=== PATIENT | female | born 2000 | race Caucasian/White ===

== ENCOUNTER → 2023-02-21 | Outpatient (CLI) | payer OTHER, SELFPAY ==
[2023-02-21 11:42] LABS: Amphetamine Urine VISTA NEGATIVE (<1000 ng/mL); Barbiturate Urine VISTA NEGATIVE (< 200 ng/mL); Benzodiazepine Urine VISTA NEGATIVE (< 200 ng/mL); Cocaine Urine VISTA NEGATIVE (< 300 ng/mL); Ecstacy Urine VISTA NEGATIVE (< 500 ng/mL); Methadone Urine VISTA NEGATIVE (< 300 ng/mL); PCP Urine VISTA NEGATIVE (< 25 ng/mL); THC Urine VISTA POSITIVE (< 50 ng/mL); Vista UDS pH Range 7
[2023-02-22 21:07] LABS: Chlamydia By Nucleic Acid AMP Negative (Negative); Gonococcus By Nucleic Acid AMP Negative (Negative)
[2023-02-26 13:26] LABS: HPV Reflexed? NOT INDICATED
== END | disposition home or self-care (01) ==
PROVIDERS: Referring Provider Registered Nurse; Visit Provider Registered Nurse
DX: O99.320 Drug use complicating pregnancy, unspecified trimester (principal); F12.90 Cannabis use, unspecified, uncomplicated; Z3A.00 Weeks of gestation of pregnancy not specified
CPT/HCPCS: 80307; 87086; 87088; 87491; 87591; 88175; G0145

== ENCOUNTER → 2023-03-23 | Outpatient (CLI) | payer OTHER, SELFPAY ==
[2023-03-23 09:35] LABS: Absolute Lymphocyte Count 2.14 X10^3/uL (0.83-4.51); Absolute Neutrophil Count 5.3 X10^3/uL (2.0-7.7); Basophil# 0.05 X10^3/uL; Basophil% 0.6 % (0-1); Eosinophil# 0.39 X10^3/uL; Eosinophils% 4.4 % (0-5); Hematocrit 36.3 % (37-47); Hemoglobin 12.2 g/dL (12.0-15.0); Lymphocyte # 2.14 X10^3/ul (0.83-4.51); Lymphocyte % 24.4 % (19-41); Mean Corp Hgb Conc 33.6 g/dL (32-36); Mean Corpuscular Hgb 30.3 pg (27.0-32.0); Mean Corpuscular Volume 90.1 fL (81-99); Mean Platelet Vol. 11.9 fl (6.2-12.0); Monocyte# 0.81 X10^3/uL; Monocyte% 9.2 % (0-10); NRBC Flagged by Analyzer 0 % (0-5); Neutrophil # 5.34 X10^3/uL (2.7-7.7); Neutrophil % 60.9 % (47-70); Platelet Count 251 K/mm3 (150-450); RBC Distribution Width CV 12.2 % (11.6-14.6); RBC Distribution Width SD 39.8 fl (35.1-43.9); Red Blood Count 4.03 M/mm3 (4.2-5.4); White Blood Count 8.8 K/mm3 (4.4-11.0)
[2023-03-23 10:28] LABS: NATERA MAILED SPECIMEN
[2023-03-23 11:10] LABS: HIV - WCH Non-Reactive (Nonreactive); Hepatitis B Surface Antigen Non-Reactive (Nonreactive); Hepatitis C Antibody Non-Reactive (Nonreactive); Rubella IgG Reactive (Nonreactive); Syphilis Antibodies Non-reactive
== END | disposition home or self-care (01) ==
LOC: PAVLAB 09:14
PROVIDERS: Registered Nurse; Referring Provider Obstetrics & Gynecology; Visit Provider Obstetrics & Gynecology
DX: Z34.81 Encounter for supervision of other normal pregnancy, first trimester (principal)
CPT/HCPCS: 36415; 85025; 86703; 86762; 86780; 86803; 86850; 86900; 86901; 87340

== ENCOUNTER → 2023-05-18 | Outpatient (CLI) | payer OTHER, SELFPAY ==
--- OUTSIDE RECORDS SUMMARY | 2023-05-18 16:49 | XMS RPT_ITS | CCD ---
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 Name Role Phone AYDEE WALLACE Unavailable Unavailable AYDEE WALLACE Unavailable Unavailable TONJA GUADALUPE Unavailable Unavailable Yael MASON Unavailable Unavailable MARTI SALDANA Unavailable Unavailable TONJA GUADALUPE Unavailable Unavailable German Ibarra Unavailable Unavailabl e German Ibarra Unavailable Unavailabl e No Doctor Assigned, Nodr Unavailable Unavail able Tonja Guadalupe Primary Care Provider TONJA GUADALUPE Primary Care Unavailable HANNA FAJARDO Attending Unavaila TONJA Hong Primary Care Unavailable BEATRICE NEGRON Attending Unavailable BEATRICE NEGRON Admitting Unavailable SHAYNA WANG Attending Unavailable SANJUANITA TAYLOR Primary Care Unavailable RAHEL YANG Attending Unavailable ADRIANA GUTIERRES Referring Unavailabl e Medications Current Medications Medication Drug Class(es) Dates Sig (Normalized) Sig (Original) cefdinir 300 mg oral capsule (2 sources) Cephalosporin Antibacterial Start: 10-11-2019 End: 10-21-2019 take 1 capsule by mouth twice daily cefdinir (OMNICEF) 300 MG capsule Take 1 (one) capsule (300 mg total) by mouth 2 (two) times a day for 10 days . 20 capsule 0 10/11/2019 10/21/2019 Active ethinyl estradiol 0.035 mg / norethindrone 1 mg oral tablet (2 sources) Estrogen take 1 tablet by mouth once daily norethindrone-e thinyl estradiol (ORTHO-NOVUM 1-35 TAB,NORTREL 1-35 TAB) 1-35 mg-mcg per tablet Take 1 tablet by mouth daily . 0 Active sertraline 50 mg oral tablet (2 sources) Serotonin Reuptake Inhibitor take 1 tablet by mouth once daily sertraline (ZOLOFT) 50 MG tablet Take 50 mg by mouth daily . 0 Active sulfamethoxazole 800 mg / trimethoprim 160 mg oral tablet (1 source) Dihydrofolate Reductase Inhibitor Antibacterial, Sulfonamide Antimicrobial Start: 10-12-2019 End: 10-22-2019 take 1 tablet by mouth twice daily sulfamethoxazol e-trimethoprim (BACTRIM DS,SEPTRA DS) 800-160 mg per tablet Take 1 (one) tablet by mouth 2 (two) times a day for 10 days . 20 tablet 0 10/12/2019 10/22/2019 Active Completed/Discontinued Medications Medication Drug Class(es) Dates Sig (Normalized) Sig (Original) cefTRIAXone 1000 mg injection (1 source) Cephalosporin Antibacterial Start: 10-12-2019 End: 10-12-2019 cefTRIAXone (ROCEPHIN) IVPB 1 g (premix) 1 ml ketorolac tromethamine 30 mg/ml injection (1 source) Nonsteroidal Anti-inflammatory Drug, Cyclooxygenase Inhibitor Start: 10-12-2019 End: 10-12-2019 ketorolac (TORADOL) injection 15 mg 2 ml ondansetron 2 mg/ml injection (3 sources) Serotonin-3 Receptor Antagonist Start: 10-12-2019 End: 10-12-2019 ondansetron (ZOFRAN) injection 4 mg Problems Active Problems Problem Classification Problem Date Documented Da te Episodic/Chronic External Injury - Place of occurrence (1 source) Other place in unspecified non-institutional (private) residence as the place of occurrence of the external cause; Translations: [OTH PLAC UNS NON INST RES OCCUR EXT] Onset: 03-21-2017 Genitourinary symptoms and ill-defined conditions (3 sources) Dysuria; Translations: [Blood in urine] Episodic Residual codes; unclassified (2 sources) Less than 8 weeks gestation of ; Translations: [Less than 8 weeks gestation of ] Onset: 02-10-2023 Episodic Unclassified (1 source) Overexertion from prolonged static or awkward postures, initial encounter; Translations: [OVEREXERT PROLNG STAT/AWK PST INIT] Onset: 03-21-2017 Urinary tract infections (1 source) Acute urinary tract infection; Translations: [Acute UTI] Episodic Past or Other Problems Problem Classification Problem Date Documented Da te Episodic/Chronic Other injuries and conditions due to external causes (2 sources) Unspecified injury of left ankle, initial encounter; Translations: [UNSPECIFIED INJURY LT ANKLE INITIAL] Onset: 03-17-2017 Episodic Sprains and strains (1 source) Sprain of unspecified ligament of left ankle, initial encounter; Translations: [SPRAIN UNS LIGAMENT LT ANKLE INIT] Onset: 03-21-2017 Episodic Results Test Name Value Interpretation Reference Range [facility] it Vital Signs Date Time Vital Sign Value Performing Clinician Faci [facility] 10-12-2019 14:09-0400 Body Temperature 98.29 [degF] [facility] 10-12-2019 14:09-0400 BP Diastolic 95 mm[Hg] [facility] 10-12-2019 14:09-0400 BP Systolic 135 mm[Hg] [facility] 10-12-2019 14:09-0400 Pulse (Heart Rate) 85 /min [facility] 10-12-2019 14:09-0400 Pulse Oximetry 98 % [facility] 10-12-2019 14:09-0400 Respiratory Rate 16 /min [facility] 10-11-2019 17:45-0400 BMI (Body Mass Index) 20.68 kg/m2 [facility] 10-11-2019 17:45-0400 Body Temperature 98.6 [degF] [facility] 10-11-2019 17:45-0400 Body weight 61.69 kg [facility] 10-11-2019 17:45-0400 BP Diastolic 79 mm[Hg] [facility] 10-11-2019 17:45-0400 BP Systolic 111 mm[Hg] [facility] 10-11-2019 17:45-0400 Height 172.7 cm [facility] 10-11-2019 17:45-0400 Pulse (Heart Rate) 72 /min [facility] 10-11-2019 17:45-0400 Pulse Oximetry 97 % [facility] 10-11-2019 17:45-0400 Respiratory Rate 18 /min [facility] Encounters Encounter Date Encounter Type Care Provider Facility Start: 04-30-2023 End: 04-30-2023 ambulatory SANJUANITA TAYLOR [facility] Start: 02-10-2023 End: 02-10-2023 ambulatory SHAYNA Ramos [facility] Start: 10-12-2019 End: 10-12-2019 Emergency department patient visit TONJA GUADALUPE [facility] Start: 10-12-2019 End: 10-12-2019 Emergency department patient visit Beatrice Negron Work Phone: [facility] Emergency Department Procedures Date Procedure Procedure Detail Performing Clinician Start: 10-12-2019 Ct abdomen & pelvis w/contrast material Madiha Figueredo Work Phone: Start: 10-12-2019 Urinalysis Madiha Ernandez Figueredo Work Phone: Start: 10-12-2019 Basic metabolic 2000 panel - Serum or Plasma Madiha Figueredo Work Phone: Start: 10-12-2019 Choriogonadotropin.beta subunit ( test) [Presence] in Serum or Plasma Madiha Ernandez Figueredo Work Phone: Start: 10-12-2019 Complete blood count with white cell differential, automated Madiha Ernandez Figueredo Work Phone: Start: 10-12-2019 Complete blood count with white cell differential, manual Madiha Ernandez Figueredo Work Phone: Start: 10-12-2019 Hepatic function 2000 panel - Serum or Plasma Madiha Ernandez Figueredo Work Phone: Start: 10-12-2019 Lactate [Moles/volume] in Serum or Plasma Madiha Ernandez Figueredo Work Phone: Start: 10-12-2019 Lipase [Enzymatic activity/volume] in Serum or Plasma Madiha Ernandez Figueredo Work Phone: Start: 10-11-2019 Choriogonadotropin ( test) [Presence] in Urine Hanna Fajardo Work Phone: Start: 10-11-2019 Urinalysis, automated Hanna Henry port Work Phone: Plan of Treatment Date Care Activity Detail Author Start: 12-12-2022 Tetanus vaccination Tetanus: Every 1 0yrs [facility] Start: 12-23-2019 Influenza vaccination given Se quential Influenza Vaccine (Season Ended) [facility] Start: 08-26-2003 History and physical examination, annual for health maintenance Wellness Visit [facility] Start: 2000 Screening for Chlamy lorraine trachomatis Chlamydia Screening [facility] End: 10-12-2019 Bacteria identified Aer cx Nom (Unsp spec) Urine Aerobic Culture Microbiology Routine Once for 1 Occurrences starting 10/12/2019 until 10/12/2019 [facility] Payers Date Payer Category Payer Unknown EDDA FLEMING/PREF/HMO/PPO xxxxxxxxxxxx 2019-Present xxxxxxxxxxxx [id number] 2019 Unknown [id number] 2017 Self-pay 2000 Unknown [id number] 2000 Unknown [id number] 1981 Unknown [id number] 1959 Unknown [id number] Private Health Insurance [id number] Social History Date Type Detail Facility Start: 10-11-2019 End: 10-12-2019 Tobacco smoking status NHIS Never smoker [facility] Start: 10-11-2019 End: 10-12-2019 Alcohol intake Ex-drinker (finding) [facility] Start: 10-11-2019 Tobacco Comment vapes [facility] Sex Assigned At Not on file [facility] Exposure to SARS-CoV-2 (event) Not sure [facility] Summary Purpose Family History No Family History Records FoundNo Family History Records FoundNo Family History Records FoundNo Family History Records FoundNo Family History Records FoundNo Family History Records FoundNo Family History Records Found Advance Directives No Advanced Directives Records FoundDocuments on File Type Date 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 Discontinue the Cefdinir that you were prescribed yesterday. Take Tylenol and ibuprofen for pain. Contact your primary care doctor tomorrow for a follow-up within 1 to 3 days. If symptoms worsen or persist please present back to the ER. * Attachments The following attachments cannot be sent through Care Everywhere. * UTI (Urinary Tract Infection): Female (Latvian) documented in this encounter Assessments Diagnosis Acute UTI Urinary tract infection, site not specified Diagnosis Dysuria Hematuria, unspecified type Voiding dysfunction Unspecified disorder of urethra and urinary tract Instructions * Patient Instructions* Hanna Fajardo PA-C - 10/11/2019 6:09 PM EDT April, Advised any worsening symptoms: cannot urinate, worsening current symptoms, gross hematuria, doc temp, vomiting, fatigue, weakness, abd pain or any other concerns--ER! F/u with pcp for recheck of urine in 7- 10 days as long as symptoms are improving. Omnicef x 10 days, fluids. Rest. Urine culture sent out, will call you with those results. Work note. Urine preg--neg; Udip + or abnormal. Contact your pcp on Sunday and let them know you were seen at our Urgent Care. Pt counceled on azo use and why this can be dangerous. Advised not to use this in the future. Get better girlie! Painful Urination (Dysuria): Care Instructions Your Care Instructions Burning pain with urination (dysuria) is a common symptom of a urinary tract infection or other urinary problems. The bladder may become inflamed. This can cause pain when the bladder fills and empties. You may also feel pain if the tube that carries urine from the bladder to the outside of the body (urethra) gets irritated or infected. Sexually transmitted infections (STIs) also may cause pain when you urinate. Sometimes the pain can be caused by things other than an infection. The urethra can be irritated bysoaps, perfumes, or foreign objects in the urethra. Kidney stones can cause pain when they pass through the urethra. The cause may be hard to find. You may need tests. Treatment for painful urination depends on the cause. Follow-up care is a robles part of your treatment and safety. Be sure to make and go to all appointments, and call your doctor if you are having problems. It's also a good idea to know your test resultsand keep a list of the medicines you take. How can you care for yourself at home? Drink extra water for the next day or two. This will help make the urine less concentrated. (If youhave kidney, heart, or liver disease and have to limit fluids, talk with your doctor before you increase the amount of fluids you drink.) Avoid drinks that are carbonated or have caffeine. They can irritate the bladder. Urinate often. Try to empty your bladder each time. For women: Urinate right after you have sex. After going to the bathroom, wipe from front to back. Avoid douches, bubble baths, and feminine hygiene sprays. And avoid other feminine hygiene productsthat have deodorants. When should you call for help? Call your doctor now or seek immediate medical care if: You have new symptoms, such as fever, nausea, or vomiting. You have new or worse symptoms of a urinary problem. For example: ? You have blood or pus in your urine. ? You have chills or body aches. ? It hurts worse to urinate. ? You have groin or belly pain. ? You have pain in your back just below your rib cage (the flank area). Watch closely for changes in your health, and be sure to contact your doctor if you have any problems. Where can you learn more? Log into your personal health record on [email or web address]://[email or web address] and enter H814 in the Education box to learn more about Painful Urination (Dysuria): Care Instructions. Current as of: December 11, 2018 Content Version: 12.3 [id number] [employer]. Care instructions adapted under license by your healthcare professional. If you have questions about a medical condition or this instruction, always ask your healthcare professional. [employer] disclaims any warranty or liability for your use of this information. documented in this encounter History of Present Illness * Hanna Fajardo PA-C - 10/11/2019 5:48 PM EDT Patient Name: [facility] Urgent Care Location: [facility] [address] [place] [id number] Date Of : Date Of Visit: 2000 10/14/2019 MRN# Provider: [id number] Hanna Fajardo PA-C Chief Complaint Patient presents with Urinary Frequency x3-4 days Flank Pain Assessment & Plan 1. Dysuria POC Urinalysis Dipstick,Auto UC POC , Urine Urine Aerobic Culture 2. Hematuria, unspecified type Urine Aerobic Culture 3. Voiding dysfunction Urine Aerobic Culture Return if symptoms worsen or fail to improve. Medical Decision Making Discussed flank pain, pyelo, etc. Pt prefers to be treated as out pt today; Discussed when to go toER (see discharge instructions). Pt is nontoxic, afebrile--will send urine for culture after abnormal urinalysis and wait for results. Starting pt on omnicef and one day of pyridium. ANY WORSENING SYMPTOMS--ER!! Work note provided. Pt is nontoxic, afebrile, w/o ams and verbalized good understanding and agreement. Additional Clinical Comments Discussed over the counter medications for symptomatic management and side effects of medications. Recommended taking all medications with food and to stop medications if they develop any signs of anallergic reaction. Educated patient and/or guardian about signs and symptoms that would warrant further immediate evaluation. Recommended that they should return to urgent care, make an appointment with their family physician, or go to the emergency room if symptoms persist or get acutely worse. Recommended follow upwithin the next week with their PCP or to get established with a PCP soon in order to follow up appropriately. [facility] COVID-19 Mask Status: Does the patient have classic COVID-19 symptoms? No, the patient does not have COVID-19 symptoms, the patient WAS wearing a mask during the visit and I (the provider) WAS wearing a mask during the visit. The provider was wearing gloves during visit. Subjective 19 y.o. female presents with Urinary Frequency (x3-4 days) and Flank Pain The pt presents after one wk of urinary frequency, dysuria, and now over the past 24 hours, bilat back pain. No hx of kidney stones. NO abnl vag dc or bleeding, painful intercourse. Pt has had no abdPSH, no female hx. She is sexually active, using contraception with a male partner. NO gross hematuria. Admits to chills, nausea, flank pain; works at [employer] in [place]. Will need work note. Dysuria This is a new problem. The current episode started in the past 7 days. The problem occurs every urination. The problem has been gradually worsening. The quality of the pain is described as burning. The pain is at a severity of 4/10. The pain is mild. There has been no fever. She is sexually active.There is no history of pyelonephritis. Associated symptoms include chills, flank pain, nausea and urgency. Pertinent negatives include no frequency, hematuria or vomiting. She has tried increased fluids for the symptoms. The treatment provided mild relief. There is no history of catheterization, kidney stones, recurrent UTIs, a single kidney, urinary stasis or a urological procedure. Review Of Systems Review of Systems Constitutional: Positive for activity change, appetite change and chills. Negative for diaphoresis,fatigue, fever and unexpected weight change. HENT: Negative. Eyes: Negative. Respiratory: Negative. Gastrointestinal: Positive for nausea. Negative for abdominal distention, abdominal pain, anal bleeding, blood in stool, constipation, diarrhea, rectal pain and vomiting. Genitourinary: Positive for difficulty urinating, dysuria, flank pain and urgency. Negative for decreased urine volume, dyspareunia, enuresis, frequency, genital sores, hematuria, menstrual problem, pelvic pain, vaginal bleeding, vaginal discharge and vaginal pain. Musculoskeletal: Negative for arthralgias, back pain, gait problem, joint swelling, myalgias, neck pain and neck stiffness. Skin: Negative. Neurological: Negative. Hematological: Negative. Medical History Past Medical History: Diagnosis Date Anxiety Asthma Depression There is no problem list on file for this patient. Social History Social History Socioeconomic History Marital status: Single Spouse name: Not on file Number of children: Not on file Years of education: Not on file Highest education level: Not on file Occupational History Not on file Social Needs Financial resource strain: Not on file Food insecurity Worry: Not on file Inability: Not on file Transportation needs Medical: Not on file Non-medical: Not on file Tobacco Use Smoking status: Never Smoker Smokeless tobacco: Never Used Tobacco comment: vapes Substance and Sexual Activity Alcohol use: Not Currently Drug use: Not on file Sexual activity: Not on file Lifestyle Physical activity Days per week: Not on file Minutes per session: Not on file Stress: Not on file Relationships Social connections Talks on phone: Not on file Gets together: Not on file Attends sabianism service: Not on file Active member of club or organization: Not on file Attends meetings of clubs or organizations: Not on file Relationship status: Not on file Other Topics Concern Not on file Social History Narrative Not on file Family History No family history on file. Objective Physical Exam BP 111/79 Pulse 72 Temp 98.6 F (37 C) (Infrared) Resp 18 Ht 5' 8 Wt 61.7 kg (136 lb) SpO2 97% BMI 20.68 kg/m Vision/Hearing Exam:No exam data present Physical Exam Vitals signs and nursing note reviewed. Constitutional: General: She is not in acute distress. Appearance: Normal appearance. She is normal weight. She is not ill-appearing, toxic-appearing or diaphoretic. HENT: Head: Normocephalic and atraumatic. Right Ear: External ear normal. Left Ear: External ear normal. Nose: Nose normal. Eyes: General: No scleral icterus. Right eye: No discharge. Left eye: No discharge. Extraocular Movements: Extraocular movements intact. Neck: Musculoskeletal: Normal range of motion and neck supple. No neck rigidity. Cardiovascular: Rate and Rhythm: Normal rate and regular rhythm. Pulses: Normal pulses. Heart sounds: Normal heart sounds. No murmur. No friction rub. No gallop. Pulmonary: Effort: Pulmonary effort is normal. No respiratory distress. Breath sounds: Normal breath sounds. No stridor. No wheezing, rhonchi or rales. Chest: Chest wall: No tenderness. Abdominal: General: Bowel sounds are normal. There is no distension. Palpations: Abdomen is soft. Tenderness: There is abdominal tenderness. There is guarding. There is no right CVA tenderness or left CVA tenderness. Comments: Pt c/o bilat flank ttp but no elicited on exam. No flank ecchymosis. No post midline spinal ttp throughout. No evidence of incontinence. + suprapubic ttp on exam only. No HSM. Musculoskeletal: Normal range of motion. General: No swelling, tenderness, deformity or signs of injury. Right lower leg: No edema. Left lower leg: No edema. Skin: General: Skin is warm and dry. Capillary Refill: Capillary refill takes 2 to 3 seconds. Coloration: Skin is not jaundiced or pale. Findings: No bruising, erythema, lesion or rash. Neurological: General: No focal deficit present. Mental Status: She is alert and oriented to person, place, and time. Mental status is at baseline. Cranial Nerves: No cranial nerve deficit. Sensory: No sensory deficit. Motor: No weakness. Gait: Gait normal. Deep Tendon Reflexes: Reflexes normal. Psychiatric: Mood and Affect: Mood normal. Behavior: Behavior normal. Thought Content: Thought content normal. Judgment: Judgment normal. Procedure Notes Procedures Results Recent Results (from the past 168 hour(s)) POC Urinalysis Dipstick,Auto UC Collection Time: 10/11/19 5:53 PM Result Value Ref Range POC Color, Urine Vidhi (A) Yellow, Light Yellow, Dark Yellow Clarity, UA Cloudy (A) Clear Glucose, UA Negative Normal, Negative mg/dL Bilirubin, UA Negative Negative Ketones, UA Moderate (A) Negative mg/dL Spec Grav, UA 1.020 1.005 - 1.025 Blood, UA Moderate (A) Negative pH, UA 7.0 5.0 - 7.0 Protein, UA 300 (A) Negative mg/dL Urobilinogen, UA <2.0 <2.0, 0.2, Normal, Negative, 1.0, 2.0, <1.0 mg/dL Nitrite, UA Negative Negative Leukocyte Esterase, UA Moderate (A) Negative POC , Urine Collection Time: 10/11/19 5:59 PM Result Value Ref Range POC Preg Test, Ur Negative Negative Internal Control Pass Urine Aerobic Culture Collection Time: 10/11/19 6:12 PM Result Value Ref Range Culture (A) 50,000-100,000 CFU/mL Staphylococcus coagulase negative Culture (A) 50,000-100,000 CFU/mL Staphylococcus coagulase negative BMP Collection Time: 10/12/19 2:28 PM Result Value Ref Range Sodium 140 135 - 145 mmol/L Potassium 3.1 (L) 3.5 - 5.1 mmol/L Chloride 107 98 - 108 mmol/L Bicarbonate 25 21 - 32 mmol/L Anion Gap 11 10 - 20 mmol/L Glucose 85 65 - 99 mg/dL BUN 7 (L) 8 - 25 mg/dL Creatinine 0.87 0.40 - 1.10 mg/dL eGFR 97 >=60 mL/min/1.73 m2 BUN/Creatinine Ratio 8.0 (L) 10.0 - 20.0 Calcium 8.5 8.4 - 10.2 mg/dL HCG (QUALITATIVE) Collection Time: 10/12/19 2:28 PM Result Value Ref Range Beta-hCG Qual Negative Negative Lipase Collection Time: 10/12/19 2:28 PM Result Value Ref Range Lipase 106 73 - 393 U/L Lactic Acid, Plasma Collection Time: 10/12/19 2:28 PM Result Value Ref Range Lactic Acid 2.5 (H) 0.6 - 2.0 mmol/L Hepatic Function Panel (LFT) Collection Time: 10/12/19 2:28 PM Result Value Ref Range Total Protein 7.4 6.0 - 8.0 g/dL Albumin 3.5 3.2 - 5.2 g/dL Total Bilirubin 0.4 0.0 - 1.3 mg/dL Bilirubin, Direct <0.1 0.0 - 0.4 mg/dL Alkaline Phosphatase 52 40 - 140 U/L AST 18 0 - 45 U/L ALT 30 14 - 65 U/L CBC Auto Differential Collection Time: 10/12/19 2:28 PM Result Value Ref Range WBC 6.93 4.50 - 11.00 K/mcL RBC 4.54 4.00 - 5.20 M/mcL Hemoglobin 12.9 12.0 - 16.0 g/dL Hematocrit 40.2 36.0 - 46.0 % MCV 88.5 80.0 - 100.0 fL MCH 28.4 26.0 - 34.0 pg MCHC 32.1 31.0 - 37.0 g/dL Platelets 310 150 - 400 K/mcL RDW - CV 13.3 11.6 - 14.8 % MPV 12.1 9.4 - 12.4 fL Neutrophils 58.4 % Lymphocytes 23.8 % Monocytes 14.1 % Eosinophils 2.9 % Basophils 0.4 % IG Percent 0.40 % Neutrophils Abs 4.04 1.70 - 7.00 K/mcL Lymphocytes Abs 1.65 0.90 - 4.00 K/mcL Monocytes Abs 0.98 (H) 0.30 - 0.90 K/mcL Eosinophils Abs 0.20 0.00 - 0.50 K/mcL Basophils Abs 0.03 0.00 - 0.30 K/mcL IG Absolute 0.03 0.00 - 0.30 K/mcL Nucleated RBC 0.0 % Nucleated RBC Abs 0.00 0.00 - 0.00 K/mcL Urinalysis Collection Time: 10/12/19 2:38 PM Result Value Ref Range Color, Urine Vidhi (A) Colorless, Yellow Clarity, Urine Hazy (A) Clear Specific [place] 1.010 1.005 - 1.025 pH, Urine 7.0 5.0 - 7.0 Protein, Urine 30 (A) Negative mg/dL Glucose, Urine Negative Negative mg/dL Ketones, Urine Negative Negative mg/dL Bilirubin, Urine Negative Negative Urobilinogen, Urine >=4.0 (A) <2.0 mg/dL Blood, Urine Negative Negative Nitrite, Urine Positive (A) Negative Leukocyte Esterase, Urine Moderate (A) Negative WBCs, Urine 82 (H) 0 - 5 /hpf Bacteria, Urine Rare (A) None Seen /hpf WBC Clumps, Urine Rare (A) None Seen /hpf Squamous Epithelial <1 0 - 4 /hpf Mucus, Urine Rare None Seen, Rare /lpf Urine Aerobic Culture Collection Time: 10/12/19 2:38 PM Result Value Ref Range Culture (A) 10,000-49,000 CFU/mL Staphylococcus coagulase negative Culture (A) 10,000-49,000 CFU/mL Staphylococcus coagulase negative Blood Culture Aerobic/Anaerobic Collection Time: 10/12/19 3:30 PM Result Value Ref Range Culture No Growth After 48 Hours Blood Culture Aerobic/Anaerobic Collection Time: 10/12/19 3:30 PM Result Value Ref Range Culture No Growth After 48 Hours No orders to display Orders Placed This Visit Orders Placed This Encounter Procedures Urine Aerobic Culture POC Urinalysis Dipstick,Auto UC POC , Urine Medication List At End Of Visit Current Outpatient Medications Medication Sig Dispense Refill norethindrone-ethinyl estradiol (ORTHO-NOVUM 1-35 TAB,NORTREL 1-35 TAB) 1-35 mg- mcg per tablet Take1 tablet by mouth daily . sertraline (ZOLOFT) 50 MG tablet Take 50 mg by mouth daily . cefdinir (OMNICEF) 300 MG capsule Take 1 (one) capsule (300 mg total) by mouth 2 (two) times a day for 10 days . 20 capsule 0 ondansetron (Zofran ODT) 4 MG disintegrating tablet Dissolve 1 (one) tablet (4 mg total) on top of tongue every 8 (eight) hours as needed for nausea . 3 tablet 0 sulfamethoxazole-trimethoprim (BACTRIM DS,SEPTRA DS) 800-160 mg per tablet Take 1 (one) tablet by mouth 2 (two) times a day for 10 days . 20 tablet 0 No current facility-administered medications for this visit. Patient Instructions April, Advised any worsening symptoms: cannot urinate, worsening current symptoms, gross hematuria, doc temp, vomiting, fatigue, weakness, abd pain or any other concerns--ER! F/u with pcp for recheck of urine in 7- 10 days as long as symptoms are improving. Omnicef x 10 days, fluids. Rest. Urine culture sent out, will call you with those results. Work note. Urine preg--neg; Udip + or abnormal. Contact your pcp on Sunday and let them know you were seen at our Urgent Care. Pt counceled on azo use and why this can be dangerous. Advised not to use this in the future. Get better girlie! Painful Urination (Dysuria): Care Instructions Your Care Instructions Burning pain with urination (dysuria) is a common symptom of a urinary tract infection or other urinary problems. The bladder may become inflamed. This can cause pain when the bladder fills and empties. You may also feel pain if the tube that carries urine from the bladder to the outside of the body (urethra) gets irritated or infected. Sexually transmitted infections (STIs) also may cause pain when you urinate. Sometimes the pain can be caused by things other than an infection. The urethra can be irritated bysoaps, perfumes, or foreign objects in the urethra. Kidney stones can cause pain when they pass through the urethra. The cause may be hard to find. You may need tests. Treatment for painful urination depends on the cause. Follow-up care is a robles part of your treatment and safety. Be sure to make and go to all appointments, and call your doctor if you are having problems. It's also a good idea to know your test resultsand keep a list of the medicines you take. How can you care for yourself at home? Drink extra water for the next day or two. This will help make the urine less concentrated. (If youhave kidney, heart, or liver disease and have to limit fluids, talk with your doctor before you increase the amount of fluids you drink.) Avoid drinks that are carbonated or have caffeine. They can irritate the bladder. Urinate often. Try to empty your bladder each time. For women: Urinate right after you have sex. After going to the bathroom, wipe from front to back. Avoid douches, bubble baths, and feminine hygiene sprays. And avoid other feminine hygiene productsthat have deodorants. When should you call for help? Call your doctor now or seek immediate medical care if: You have new symptoms, such as fever, nausea, or vomiting. You have new or worse symptoms of a urinary problem. For example: ? You have blood or pus in your urine. ? You have chills or body aches. ? It hurts worse to urinate. ? You have groin or belly pain. ? You have pain in your back just below your rib cage (the flank area). Watch closely for changes in your health, and be sure to contact your doctor if you have any problems. Where can you learn more? Log into your personal health record on [email or web address] and enter H814 in the Education box to learn more about Painful Urination (Dysuria): Care Instructions. Current as of: December 11, 2018 Content Version: 12.3 4911-7100 [employer]. Care instructions adapted under license by your healthcare professional. If you have questions about a medical condition or this instruction, always ask your healthcare professional. [employer] disclaims any warranty or liability for your use of this information. documented in this encounter Additional Source Comments INFORMATION SOURCE (unrecogn ized section and content) DATE CREATED AUTHOR AUTHOR'S ORGANIZ ATION 11/20/2017 [facility] DATE CREATED AUTHOR AUTHOR'S ORGANIZ ATION 11/08/2019 [facility] DATE CREATED AUTHOR AUTHOR'S ORGANIZ ATION 11/08/2019 [facility] DATE CREATED AUTHOR AUTHOR'S ORGANIZ ATION 11/13/2019 [facility] DATE CREATED AUTHOR AUTHOR'S ORGANIZ ATION 02/11/2023 [facility] DATE CREATED AUTHOR AUTHOR'S ORGANIZ ATION 05/01/2023 [facility] Reason for Visit (unrecogniz ed section and content) Reason Comments Urinary Frequency x3-4 days Flank Pain Madiha Figueredo PA-C - 10/12/2019 2:21 PM EDTFYunior alanis RN - 10/12/2019 2:02 PM EDT ED Notes (unrecognized secti on and content) ED PROVIDER NOTE [facility] EMERGENCY DE[facility] NAME: April Amanda AGE: 19 y.o. : 2000 VISIT DATE: 10/12/2019 CSN: [id number] PCP: Tonja Guadalupe CNP Chief Complaint Patient presents with Urinary Tract Infection Patient presents to the emergency department for complaint of worsening urinary tract infection. Patient states her last 2 to 3 days she has been having dysuria. Explains also having bilateral flank pain. Patient was seen in urgent care yesterday where she was diagnosed with a UTI and given cefdinir, Zofran, Pyridium. Patient states that she woke up today feeling even worse. States she now has pain in her abdomen. Points to entire lower abdomen to sure the pain is at. States that she feels very nauseous. Has not had any vomiting. States that she has chills without fever. Denies chance of . Denies vaginal discharge or chance of STD. Denies all other symptoms and complaints at this time. Past Medical History: Diagnosis Date Anxiety Asthma Depression Past Surgical History: Procedure Laterality Date ADENOIDECTOMY ADENOIDECTOMY AND BILATERAL EAR TUBES TONSILLECTOMY History reviewed. No pertinent family history. Social History Socioeconomic History Marital status: Single Spouse name: Not on file Number of children: Not on file Years of education: Not on file Highest education level: Not on file Occupational History Not on file Social Needs Financial resource strain: Not on file Food insecurity Worry: Not on file Inability: Not on file Transportation needs Medical: Not on file Non-medical: Not on file Tobacco Use Smoking status: Never Smoker Smokeless tobacco: Never Used Tobacco comment: vapes Substance and Sexual Activity Alcohol use: Not Currently Drug use: Not on file Sexual activity: Not on file Lifestyle Physical activity Days per week: Not on file Minutes per session: Not on file Stress: Not on file Relationships Social connections Talks on phone: Not on file Gets together: Not on file Attends sabianism service: Not on file Active member of club or organization: Not on file Attends meetings of clubs or organizations: Not on file Relationship status: Not on file Other Topics Concern Not on file Social History Narrative Not on file Previous Medications Medication Sig cefdinir (OMNICEF) 300 MG capsule Take 1 (one) capsule (300 mg total) by mouth 2 (two) times a day for 10 days . norethindrone-ethinyl estradiol (ORTHO-NOVUM 1-35 TAB,NORTREL 1-35 TAB) 1-35 mg- mcg per tablet Take 1 tablet by mouth daily . ondansetron (Zofran ODT) 4 MG disintegrating tablet Dissolve 1 (one) tablet (4 mg total) on top of tongue every 8 (eight) hours as needed for nausea . phenazopyridine (PYRIDIUM) 100 MG tablet Take 1 (one) tablet (100 mg total) by mouth 3 (three) times a day as needed for pain . sertraline (ZOLOFT) 50 MG tablet Take 50 mg by mouth daily . No Known Allergies Review of Systems Constitutional: Negative for activity change, chills, fatigue and fever. HENT: Negative for congestion, ear pain, hearing loss, postnasal drip, rhinorrhea, sore throat and trouble swallowing. Eyes: Negative for photophobia, pain, redness and visual disturbance. Respiratory: Negative for cough, chest tightness, shortness of breath and wheezing. Cardiovascular: Negative for chest pain, palpitations and leg swelling. Gastrointestinal: Positive for abdominal pain and nausea. Negative for constipation, diarrhea and vomiting. Genitourinary: Positive for dysuria and flank pain. Negative for difficulty urinating, hematuria and urgency. Musculoskeletal: Negative for arthralgias, back pain, myalgias, neck pain and neck stiffness. Skin: Negative for color change and rash. Neurological: Negative for dizziness, speech difficulty, weakness, numbness and headaches. Psychiatric/Behavioral: Negative for agitation and suicidal ideas. The patient is not nervous/anxious. Patient Vitals for the past 24 hrs: BP Temp Pulse Resp SpO2 10/12/19 1409 (!) 135/95 98.3 F (36.8 C) 85 16 98 % Physical Exam Vitals signs and nursing note reviewed. Constitutional: General: She is not in acute distress. Appearance: She is well-developed and normal weight. She is not toxic-appearing. HENT: Head: Normocephalic and atraumatic. Right Ear: External ear normal. Left Ear: External ear normal. Nose: Nose normal. Mouth/Throat: Mouth: Mucous membranes are moist. Eyes: Extraocular Movements: Extraocular movements intact. Conjunctiva/sclera: Conjunctivae normal. Neck: Musculoskeletal: Normal range of motion and neck supple. Cardiovascular: Rate and Rhythm: Normal rate and regular rhythm. Pulses: Normal pulses. Heart sounds: Normal heart sounds. Pulmonary: Effort: Pulmonary effort is normal. Breath sounds: Normal breath sounds. Abdominal: General: Bowel sounds are normal. There is no distension. Palpations: Abdomen is soft. Tenderness: There is abdominal tenderness. There is right CVA tenderness and left CVA tenderness. There is no guarding or rebound. Comments: Suprapubic TTP Musculoskeletal: Normal range of motion. General: No deformity. Skin: General: Skin is warm and dry. Neurological: General: No focal deficit present. Mental Status: She is alert and oriented to person, place, and time. Psychiatric: Mood and Affect: Mood normal. Behavior: Behavior normal. Laboratory & Radiographic Imaging (if done): Results for orders placed or performed during the hospital encounter of 10/12/19 BMP Result Value Ref Range Sodium 140 135 - 145 mmol/L Potassium 3.1 (L) 3.5 - 5.1 mmol/L Chloride 107 98 - 108 mmol/L Bicarbonate 25 21 - 32 mmol/L Anion Gap 11 10 - 20 mmol/L Glucose 85 65 - 99 mg/dL BUN 7 (L) 8 - 25 mg/dL Creatinine 0.87 0.40 - 1.10 mg/dL eGFR 97 >=60 mL/min/1.73 m2 BUN/Creatinine Ratio 8.0 (L) 10.0 - 20.0 Calcium 8.5 8.4 - 10.2 mg/dL HCG (QUALITATIVE) Result Value Ref Range Beta-hCG Qual Negative Negative Lipase Result Value Ref Range Lipase 106 73 - 393 U/L Lactic Acid, Plasma Result Value Ref Range Lactic Acid 2.5 (H) 0.6 - 2.0 mmol/L Urinalysis Result Value Ref Range Color, Urine Vidhi (A) Colorless, Yellow Clarity, Urine Hazy (A) Clear Specific [place] 1.010 1.005 - 1.025 pH, Urine 7.0 5.0 - 7.0 Protein, Urine 30 (A) Negative mg/dL Glucose, Urine Negative Negative mg/dL Ketones, Urine Negative Negative mg/dL Bilirubin, Urine Negative Negative Urobilinogen, Urine >=4.0 (A) <2.0 mg/dL Blood, Urine Negative Negative Nitrite, Urine Positive (A) Negative Leukocyte Esterase, Urine Moderate (A) Negative WBCs, Urine 82 (H) 0 - 5 /hpf Bacteria, Urine Rare (A) None Seen /hpf WBC Clumps, Urine Rare (A) None Seen /hpf Squamous Epithelial <1 0 - 4 /hpf Mucus, Urine Rare None Seen, Rare /lpf Hepatic Function Panel (LFT) Result Value Ref Range Total Protein 7.4 6.0 - 8.0 g/dL Albumin 3.5 3.2 - 5.2 g/dL Total Bilirubin 0.4 0.0 - 1.3 mg/dL Bilirubin, Direct <0.1 0.0 - 0.4 mg/dL Alkaline Phosphatase 52 40 - 140 U/L AST 18 0 - 45 U/L ALT 30 14 - 65 U/L CBC Auto Differential Result Value Ref Range WBC 6.93 4.50 - 11.00 K/mcL RBC 4.54 4.00 - 5.20 M/mcL Hemoglobin 12.9 12.0 - 16.0 g/dL Hematocrit 40.2 36.0 - 46.0 % MCV 88.5 80.0 - 100.0 fL MCH 28.4 26.0 - 34.0 pg MCHC 32.1 31.0 - 37.0 g/dL Platelets 310 150 - 400 K/mcL RDW - CV 13.3 11.6 - 14.8 % MPV 12.1 9.4 - 12.4 fL Neutrophils 58.4 % Lymphocytes 23.8 % Monocytes 14.1 % Eosinophils 2.9 % Basophils 0.4 % IG Percent 0.40 % Neutrophils Abs 4.04 1.70 - 7.00 K/mcL Lymphocytes Abs 1.65 0.90 - 4.00 K/mcL Monocytes Abs 0.98 (H) 0.30 - 0.90 K/mcL Eosinophils Abs 0.20 0.00 - 0.50 K/mcL Basophils Abs 0.03 0.00 - 0.30 K/mcL IG Absolute 0.03 0.00 - 0.30 K/mcL Nucleated RBC 0.0 % Nucleated RBC Abs 0.00 0.00 - 0.00 K/mcL CT Abdomen Pelvis With IV Contrast Only Non-public Result 1. Thick-walled urinary bladder, a finding that can be seen in cystitis, correlation with results of urinalysis. 2. No upper urinary tract stone, signs of inflammation or obstruction. 3. No other acute intraabdominal or pelvic pathology. Workstation ID: [id number] Procedures MDM Number of Diagnoses or Management Options Diagnosis management comments: Patient's vital stable. She does have a moderate urinary tract infection. She was put on Ceftin ear. I will change his antibiotic to Bactrim. She was given a dose of IV Rocephin and fluids here along with Toradol and Zofran. Urine culture also sent. Patient is feeling improvement with this. Told to contact her primary care doctor for follow-up. CT does not reveal any other acute abnormalities to better define patient's signs and symptoms. If symptoms worsen she will present back to the ER. Amount and/or Complexity of Data Reviewed Clinical lab tests: ordered and reviewed Tests in the radiology section of CPT : reviewed and ordered Risk of Complications, Morbidity, and/or Mortality Presenting problems: moderate Diagnostic procedures: moderate Management options: low Patient Progress Patient progress: stable The patient has been informed that they may have pre-hypertension or hypertension based on a blood pressure reading in the Emergency Department. I recommend that the patient call the primary care provider listed on their discharge instructions or a physician of their choice as soon as possible to arrange follow-up in the next 4 weeks for further evaluation of possible pre-hypertension or hypertension. . Clinical Impression: 1. Acute UTI ED Disposition ED Disposition Condition Comment Discharge Stable April Amanda discharged to home/self care in stable condition. Follow-up Information 1. Tonja Guadalupe CNP. Specialty: Nurse Practitioner [address] [place] [id number] Contact information for after-discharge care Follow-up information has not been specified. New Prescriptions sulfamethoxazole-trimethoprim (BACTRIM DS,SEPTRA DS) 800-160 mg per tablet Take 1 (one) tablet by mouth 2 (two) times a day for 10 days . Madiha Figueredo PA-C 10/12/19 1544 Patient was seen at urgent care in [place] yesterday and placed on placed for a uti. Patient states she now has abdominal pain and feels the infection is getting worse. documented in this encounter ED Attestation Note - Beatrice Negron MD - 10/12/2019 4:53 PM EDT Miscellaneous Notes (unrecog nized section and content) ED Attestation: I did not see this patient. However, I was personally available for consult in the ED for this patient, if the Advanced Practice Provider (BURTON) needed any assistance. The BURTON evaluated the patient independently for a complaint of Urinary Tract Infection, and completed their own examination, documentation, and discharge. documented in this encounter FOR RECORDS PERTAINING TO PATIENTS WHO ARE OR HAVE BEEN ENROLLED IN A CHEMICAL DEPENDENCY/SUBSTANCEABUSE PROGRAM, SOME INFORMATION MAY BE OMITTED. This clinical summary was aggregated from multiple sources. Caution should be exercised in using it in the provision of clinical care. This summary normalizes information from multiple sources, and as a consequence, information in this document may materially change the coding, format and clinical context of patient data. In addition, data may be omitted in some cases. CLINICAL DECISIONS SHOULD BE BASED ON THE PRIMARY CLINICAL RECORDS. [employer] [facility]. provides no warranty or guarantee of the accuracy or completeness of information in this document.
[2023-05-18 17:58] LABS: Amphetamine Urine VISTA NEGATIVE (<1000 ng/mL); Barbiturate Urine VISTA NEGATIVE (< 200 ng/mL); Benzodiazepine Urine VISTA NEGATIVE (< 200 ng/mL); Cocaine Urine VISTA NEGATIVE (< 300 ng/mL); Ecstacy Urine VISTA NEGATIVE (< 500 ng/mL); Methadone Urine VISTA NEGATIVE (< 300 ng/mL); PCP Urine VISTA NEGATIVE (< 25 ng/mL); THC Urine VISTA NEGATIVE (< 50 ng/mL); Vista UDS pH Range 6
== END | disposition home or self-care (01) ==
LOC: LABSPEC 16:47
PROVIDERS: Referring Provider Registered Nurse; Visit Provider Registered Nurse
DX: O99.320 Drug use complicating pregnancy, unspecified trimester (principal); F12.90 Cannabis use, unspecified, uncomplicated; Z3A.00 Weeks of gestation of pregnancy not specified
CPT/HCPCS: 80307

== ENCOUNTER → 2023-07-12 | Outpatient (CLI) | payer OTHER, SELFPAY ==
[2023-07-12 11:14] LABS: Absolute Lymphocyte Count 1.69 X10^3/uL (0.83-4.51); Absolute Neutrophil Count 5.9 X10^3/uL (2.0-7.7); Basophil# 0.02 X10^3/uL; Basophil% 0.2 % (0-1); Eosinophil# 0.16 X10^3/uL; Eosinophils% 1.9 % (0-5); Hematocrit 33.7 % (37-47); Hemoglobin 11.4 g/dL (12.0-15.0); Lymphocyte # 1.69 X10^3/ul (0.83-4.51); Lymphocyte % 19.6 % (19-41); Mean Corp Hgb Conc 33.8 g/dL (32-36); Mean Corpuscular Hgb 30.3 pg (27.0-32.0); Mean Corpuscular Volume 89.6 fL (81-99); Monocyte# 0.83 X10^3/uL; Monocyte% 9.6 % (0-10); NRBC Flagged by Analyzer 0 % (0-5); Neutrophil # 5.85 X10^3/uL (2.7-7.7); Platelet Count 220 K/mm3 (150-450); RBC Distribution Width CV 12.4 % (11.6-14.6); RBC Distribution Width SD 40.7 fl (35.1-43.9); Red Blood Count 3.76 M/mm3 (4.2-5.4); White Blood Count 8.6 K/mm3 (4.4-11.0)
[2023-07-12 11:28] LABS: Glucose Challenge Gest 1H 50g 86 mg/dL (70-140)
[2023-07-12 11:59] LABS: HIV - WCH Non-Reactive (Nonreactive); Syphilis Antibodies Non-reactive
== END | disposition home or self-care (01) ==
LOC: LAB 10:20
PROVIDERS: Obstetrics & Gynecology; Referring Provider Registered Nurse; Visit Provider Registered Nurse
DX: O09.90 Supervision of high risk pregnancy, unspecified, unspecified trimester (principal); Z3A.00 Weeks of gestation of pregnancy not specified; Z13.1 Encounter for screening for diabetes mellitus
CPT/HCPCS: 36415; 82950; 85025; 86703; 86780

== ENCOUNTER → 2023-09-07 | Outpatient (CLI) | payer OTHER, SELFPAY | END | disposition home or self-care (01) | LOC: LABSPEC 17:00 | PROVIDERS: Referring Provider Obstetrics & Gynecology; Visit Provider Obstetrics & Gynecology | DX: O09.90 Supervision of high risk pregnancy, unspecified, unspecified trimester (principal); Z3A.00 Weeks of gestation of pregnancy not specified | CPT/HCPCS: 87081 ==

== ENCOUNTER → 2023-09-21 | Outpatient (CLI) | payer OTHER, SELFPAY ==
--- NOTE | 2023-09-21 12:09 | US_ITS ---
STUDY: SECOND AND THIRD TRIMESTER OBSTETRICAL ULTRASOUND - LIMITED REASON FOR EXAM: Female, 23 years old uterine size date discrepancy LMP: December 25, 2022. PRIOR ULTRASOUND: None. TECHNIQUE: Transabdominal TECHNICAL QUALITY: Adequate. FINDINGS: There is a single intrauterine fetus. The fetus is in a cephalic presentation. There is demonstrated cardiac activity with a heart rate of 136 bpm. There is a normal amniotic fluid volume. The largest amniotic fluid pocket measures 3.9 cm x 5.4 cm. The amniotic fluid index (MERRICK) is 13.2 cm. The placenta is posterior in location and is not low lying. There are Grade 2 placental changes. The cervix was not measured due to head positioning and lack of filling of the urinary bladder. BIOMETRY: BPD: 9.19 cm: 37 weeks, 2 days HC: 33.6 cm: 38 weeks, 3 days AC: 32.6 cm: 36 weeks, 3 days FL: 7.04 cm: 36 weeks, 1 days Age by LMP: 38 weeks, 4 days. KARISHMA by LMP: October 01, 2023. age by current US: 37 weeks, 3 days. KARISHMA by current US: October 09, 2023. Estimated weight: 2997 grams, +/- 450 grams, 21.4 percentile. US/OB Limited With Biometrics IMPRESSION: Single live intrauterine gestation with mean gestational age of 37 weeks and 3 days. Electronically Signed: Arvind Wilson MD at 13:39 EDT ,
== END | disposition home or self-care (01) ==
LOC: OPUS 12:09
PROVIDERS: Referring Provider Obstetrics & Gynecology; Visit Provider Obstetrics & Gynecology
DX: O26.849 Uterine size-date discrepancy, unspecified trimester (principal); Z3A.00 Weeks of gestation of pregnancy not specified
CPT/HCPCS: 76816

== ENCOUNTER → 2023-09-27 | Outpatient (CLI) | payer OTHER, SELFPAY ==
--- NOTE | 2023-09-27 10:10 | US_ITS ---
STUDY: SECOND AND THIRD TRIMESTER OBSTETRICAL ULTRASOUND - LIMITED REASON FOR EXAM: Female, 23 years old MERRICK check, No Biometrics LMP: December 25, 2022. PRIOR ULTRASOUND: Comparison is made with prior study September 21, 2023 TECHNIQUE: Transabdominal TECHNICAL QUALITY: Adequate. FINDINGS: There is a single intrauterine fetus. The fetus is in a cephalic presentation. There is demonstrated cardiac activity with a heart rate of 145 bpm. There is a normal amniotic fluid volume. The largest amniotic fluid pocket measures 3.6 cm. The amniotic fluid index (MERRICK) is 10 cm. The placenta is posterior in location and is not low lying. There are Grade 2 placental changes. The cervix was not measured due to positioning. BIOMETRY: Age by LMP: 39 weeks, 3 days. KARISHMA by LMP: October 01, 2023. US/OB Limited (No Biometrics) IMPRESSION: Normal amniotic fluid index. Electronically Signed: Arvind Wilson MD at 12:31 EDT ,
== END | disposition home or self-care (01) ==
PROVIDERS: Referring Provider Advanced Practice Midwife; Visit Provider Advanced Practice Midwife
DX: O26.843 Uterine size-date discrepancy, third trimester (principal); Z3A.00 Weeks of gestation of pregnancy not specified
CPT/HCPCS: 76815

== ENCOUNTER 2023-09-28 17:33 | Outpatient (CLI) | payer OTHER, SELFPAY ==
[2023-09-28 18:11] VITALS: BP 117/74; PULSE 62; RESP 15; TEMP 36.8
[2023-09-28 18:23] LABS: ROM Internal Control Test YES-OK TO RESULT pt. (Internal QC); ROM Patient Test Negative (Negative); Record Kit Lot#, ROM+ K1866
[2023-09-28 18:41] VITALS: BMI 26.6
--- NOTE | 2023-09-28 23:32 | OB.TRI.HP_ITS ---
HPI - General General Chief Complaint: leaking of fluid HPI Narrative EZEKIEL RODRIGUEZ, is a 23 F at 39.4 who presents with questionable leaking of fluid since this morning. active fetus. denies vb/ctx. Maternal Data Information KARISHMA Calculator Estimated Delivery Date Method Current WG Current Estimate 10/01/23 LMP (Certain) 39w 4d Other Estimates 10/14/23 Ultrasound #1 37w 5d 10/03/23 Ultrasound #2 39w 2d PFSH PFSH Medical History Asthma Bacterial vaginitis Hx of gonorrhea Home Medications ?Medication ?Instructions ?Recorded ?Last Taken ?Type multivitamin no.47-iron fum 27 cap PO 02/16/23 Unknown History mg-folate no.1 1 mg-dha 300 mg capsule (PNV-DHA) metoclopramide HCl 10 mg tablet 10 mg PO Q6H PRN nausea and 03/23/23 Unknown Rx (Reglan) vomiting #60 tabs sertraline 25 mg tablet 50 mg (2 x 25 mg) PO DAILY #30 09/14/23 Unknown Rx TABLETS Allergy/AdvReac Type Severity Reaction Status Date / Time No Known Allergies Allergy Verified 09/27/23 09:19 Family History Mother Spina bifida mild form Surgical History History of tonsillectomy and adenoidectomy Social History adopted: No household members: significant other current occupational status: employed 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 occupational 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/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: Yes (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 used 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 animals to 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) pets and animals: Yes pets and animals: dog(s) history of recent travel: No sexually active: Yes Smoking Status: Current every day smoker Electronic Cigarette Use: with nicotine quit status: considering quitting alcohol intake: never substance use type: marijuana well-balanced diet: about half the time caffeine: Yes Type: other Number of servings: 1 eating out: 1-3 times/week during the past year weight has: increased > 10 lbs what type of physical activity do you participate in: none greer/cheondoism: None seatbelt use: sometimes do you feel safe at home: Yes additional social history: BF [facility] History 1 Elective abortions Hx Para 0 Spontaneous abortions Hx # Term Pregnancies Ectopic pregnancies Hx # Pregnancies Multiple births # of living children Visit Details Expected Delivery Route/Plan Labor Preferences- CB/BF classes: discussed labor support person: Norman and Sameera (mom) and Alicia (Norman's mom) labor intervention preferences: open to epidural pain management options preferred: [] cut cord/dad catch: [] : wants PP control planned: Nexplanon discussed possible routes of delivery and associated risks: [] special requests: [] Plans Covid status: [] Flu vaccine: declined Tdap vaccine: given Rhogam: na LARC form signed: declined movement and labor precautions reviewed. Problem list reviewed and updated with the most current plan of care details and appropriate orders placed. Relevant counseling for the gestational age provided. Continue routine care and follow up unless otherwise noted in visit notes/problem list details OB Flowsheet Initial Weight: 139 lb Date -?-?-?-?-?-?-?-?-?-?-?-?- EGA Weight BP Urine Prot -?-?-?-?-?-?-?-?-?-?-?-?- Glucose FHR FuHt Pres Dilation -?-?-?-?-?-?-?-?-?-?-?-?- Effaced St Visit Note 02/21/23 -?-?-?-?-?-?-?-?-?-?-?-?- 8w 2d 139 lb 8 oz (+8 oz) 110/72 -?-?-?-?-?-?-?-?-?-?-?-?- 122 -?-?-?-?-?-?-?-?-?-?-?-?- LC- CRL not con with LMP. KARISHMA changed to 10/14/2023. LC- CRL not con with LMP. 4. 0mm KARISHMA changed to 10/14/2023. deciding on nipt/carrier screening. urine tox sent for daily marijuana use. vit b6/unisom for nausea. to call for Rx if needed. 03/23/23 -?-?-?-?-?-?-?-?-?-?-?-?- 12w 4d 141 lb (+2 lb) 124/70 Negative -?-?-?-?-?-?-?-?-?-?-?-?- Negative 160 -?-?-?-?-?-?-?-?-?-?-?-?- JV- no lof, vaga inal bleeding, ro cramping. CRL today is more consistent with GA. changing due date back to 09/30/22. NIPT ordered. sending in reglan. 04/20/23 -?-?-?-?-?-?-?-?-?-?-?-?- 16w 4d 136 lb 6 oz (-2 lb 10 oz) 118/76 Negative -?-?-?-?-?-?-?-?-?-?-?-?- Negative 156 -?-?-?-?-?-?-?-?-?-?-?-?- inc anxiety. sta rt zoloft. stopped mj. still vaping LC- no vb/cramping. inc anxi ety since stopping MJ. wants to restart zoloft. still vaping, enc cessation. LC- no vb/cramping. inc anxi ety since stopping MJ. wants to restart zoloft. still vaping, enc cessation. declines afp. mfm anatomy ordered 05/18/23 -?-?-?-?-?-?-?-?-?-?-?-?- 20w 4d 138 lb 6 oz (-10 oz) 136/74 Negative -?-?-?-?-?-?-?-?-?-?-?-?- Negative 147 -?-?-?-?-?-?-?-?-?-?-?-?- LC- no vb/crampi ng. needs additional views to complete anatomy scan. cont with increase anxiety, increased zoloft to 50mg. 06/15/23 -?-?-?-?-?-?-?-?-?-?-?-?- 24w 4d 144 lb (+5 lb) 100/62 Trace A -?-?-?-?-?-?-?-?-?-?-?-?- Negative 150 24 -?-?-?-?-?-?-?-?-?-?-?-?- LC- no vb/ctx/lo f. good fm. u/s now complete and normal. self d/c mj use. repeat tox next visit.protein likely r/t no hydration yet this AM. no s/sx of PEC. LC- no vb/ctx/lof. good fm. u/s now complete and normal. protein likely r/t no hydration yet this AM. no s/sx of PEC. 07/13/23 -?-?-?-?-?-?-?-?-?-?-?-?- 28w 4d 149 lb 8 oz (+10 lb 8 oz) 113/74 Negative -?-?-?-?-?-?-?-?-?-?-?-?- Negative 150 27 -?-?-?-?-?-?-?-?-?-?-?-?- kw- no vb/lof/ct x. good fm. passed glucose. [facility] today-requesting Nexplanon. Tdap next visit 07/27/23 -?-?-?-?-?-?-?-?-?-?-?-?- 30w 4d 157 lb (+18 lb) 104/76 -?-?-?-?-?-?-?-?-?-?-?-?- 140 30 -?-?-?-?-?-?-?-?-?-?-?-?- SM- no vb lof go od fm no regular ctx 08/10/23 -?-?-?-?-?-?-?-?-?-?-?-?- 32w 4d 156 lb 6 oz (+17 lb 6 oz) 118/76 Negative -?-?-?-?-?-?-?-?-?-?-?-?- Negative 125 32 -?-?-?-?-?-?-?-?-?-?-?-?- JV- no lof, vagi nal bleeding, or dec fm. No complaints. 08/24/23 -?-?-?-?-?-?-?-?-?-?-?-?- 34w 4d 165 lb (+26 lb) 119/80 Negative -?-?-?-?-?-?-?-?-?-?-?-?- Negative 140 34 -?-?-?-?-?-?-?-?-?-?-?-?- KW- no vb/lof/ct x. good fm. 09/07/23 -?-?-?-?-?-?-?-?-?-?-?-?- 36w 4d 164 lb (+25 lb) 110/76 -?-?-?-?-?-?-?-?-?-?-?-?- 125 36 Cephalic -?-?-?-?-?-?-?-?-?-?-?-?- SM- no vb lof go od fm no regualr ctx 09/14/23 -?-?-?-?-?-?-?-?-?-?-?-?- 37w 4d 165 lb 4 oz (+26 lb 4 oz) 125/73 Negative -?-?-?-?-?-?-?-?-?-?-?-?- Negative 135 37 Cephalic 0 -?-?-?-?-?-?-?-?-?-?-?-?- 20 -3 LC- no vb/ ctx/lof. good fm. gbs neg. 09/21/23 -?-?-?-?-?-?-?-?-?-?-?-?- 38w 4d 166 lb 2 oz (+27 lb 2 oz) 115/78 Negative -?-?-?-?-?-?-?-?-?-?-?-?- Negative 120 36 Cephalic 1 -?-?-?-?-?-?-?-?-?-?-?-?- 20 -2 SM- no vb lof good fm no regular ctx 09/27/23 -?-?-?-?-?-?-?-?-?-?-?-?- 39w 3d 168 lb 2 oz (+29 lb 2 oz) 112/72 Negative -?-?-?-?-?-?-?-?-?-?-?-?- Negative 125 36 Cephalic 2 -?-?-?-?-?-?-?-?-?-?-?-?- 50 -2 KW- no vb/ lof/reg ctx. good fm. labor precautions. KW- no vb/lof/reg ctx. good fm. labor precautions. MERRICK last week 13. repeat merrick today ordered NST FHR Rate Baby A Baseline: 115 Variability:: Moderate Accelerations:: 15 x 15 Decelerations:: None NST Reactive:: Yes FHR Category:: Category I Uterine Activity:: irregular Assessment & Plan (1) No leakage of amniotic fluid into vagina: COMMENT: ROM plus negative. cat 1 tracing. no cervical change from previous office exam PLAN: Patient presents for triage evaluation secondary to questionable leaking of fluid. negative rom. FHT: Moderate variability reactive no decelerations category I tracing [place]: irreg Contractions Assessment and plan: Reactive NST, reassuring maternal and status patient discharged to home to follow-up in office. See problem list details for additional plan information. Charges/Coding Procedures Urinary/Genital 52xxx-59xxx: 55215-08 non-stress test Interp
--- NOTE | 2023-09-28 23:32 | OB.TRI.NOTE ---
HPI - General General Chief Complaint: leaking of fluid HPI Narrative EZEKIEL RODRIGUEZ, is a 23 F at 39.4 who presents with questionable leaking of fluid since this morning. active fetus. denies vb/ctx. Maternal Data Information KARISHMA Calculator Estimated Delivery Date Method Current WG Current Estimate 10/01/23 LMP (Certain) 39w 4d Other Estimates 10/14/23 Ultrasound #1 37w 5d 10/03/23 Ultrasound #2 39w 2d PFSH PFSH Medical History Asthma Bacterial vaginitis Hx of gonorrhea Home Medications ?Medication ?Instructions ?Recorded ?Last Taken ?Type multivitamin no.47-iron fum 27 cap PO 02/16/23 Unknown History mg-folate no.1 1 mg-dha 300 mg capsule (PNV-DHA) metoclopramide HCl 10 mg tablet 10 mg PO Q6H PRN nausea and 03/23/23 Unknown Rx (Reglan) vomiting #60 tabs sertraline 25 mg tablet 50 mg (2 x 25 mg) PO DAILY #30 09/14/23 Unknown Rx TABLETS Allergy/AdvReac Type Severity Reaction Status Date / Time No Known Allergies Allergy Verified 09/27/23 09:19 Family History Mother Spina bifida mild form Surgical History History of tonsillectomy and adenoidectomy Social History adopted: No household members: significant other current occupational status: employed 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 occupational exposures/hazards: Yes (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 used to 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 animals to sleep) pets and animals: Yes pets and animals: dog(s) history of recent travel: No sexually active: Yes Smoking Status: Current every day smoker Electronic Cigarette Use: with nicotine quit status: considering quitting alcohol intake: never substance use type: marijuana well-balanced diet: about half the time caffeine: Yes Type: other Number of servings: 1 eating out: 1-3 times/week during the past year weight has: increased > 10 lbs what type of physical activity do you participate in: none greer/latter-day: None seatbelt use: sometimes do you feel safe at home: Yes additional social history: BF Norman [facility]os [facility] History 1 Elective abortions Hx Para 0 Spontaneous abortions Hx # Term Pregnancies Ectopic pregnancies Hx # Pregnancies Multiple births # of living children Visit Details Expected Delivery Route/Plan Labor Preferences- CB/BF classes: discussed labor support person: Norman and Sameera (mom) and Alicia (Norman's mom) labor intervention preferences: open to epidural pain management options preferred: [] cut cord/dad catch: [] : wants PP control planned: Nexplanon discussed possible routes of delivery and associated risks: [] special requests: [] Plans Covid status: [] Flu vaccine: declined Tdap vaccine: given Rhogam: na LARC form signed: declined movement and labor precautions reviewed. Problem list reviewed and updated with the most current plan of care details and appropriate orders placed. Relevant counseling for the gestational age provided. Continue routine care and follow up unless otherwise noted in visit notes/problem list details OB Flowsheet Initial Weight: 139 lb Date <del>?</del> EGA Weight BP Urine Prot <del>?</del> Glucose FHR FuHt Pres Dilation <del>?</del> Effaced St Visit Note 02/21/23 <del>?</del> 8w 2d 139 lb 8 oz (+8 oz) 110/72 <del>?</del> 122 <del>?</del> LC- CRL not con with LMP. KARISHMA changed to 10/14/2023. LC- CRL not con with LMP. 4.0mm KARISHMA changed to 10/14/2023. deciding on nipt/carrier screening. urine tox sent for daily marijuana use. vit b6/unisom for nausea. to call for Rx if needed. 03/23/23 <del>?</del> 12w 4d 141 lb (+2 lb) 124/70 Negative <del>?</del> Negative 160 <del>?</del> JV- no lof, vagainal bleeding, ro cramping. CRL today is more consistent with GA. changing due date back to 09/30/22. NIPT ordered. sending in reglan. 04/20/23 <del>?</del> 16w 4d 136 lb 6 oz (-2 lb 10 oz) 118/76 Negative <del>?</del> Negative 156 <del>?</del> inc anxiety. start zoloft. stopped mj. still vaping LC- no vb/cramping. inc anxiety since stopping MJ. wants to restart zoloft. still vaping, enc cessation. LC- no vb/cramping. inc anxiety since stopping MJ. wants to restart zoloft. still vaping, enc cessation. declines afp. mfm anatomy ordered 05/18/23 <del>?</del> 20w 4d 138 lb 6 oz (-10 oz) 136/74 Negative <del>?</del> Negative 147 <del>?</del> LC- no vb/cramping. needs additional views to complete anatomy scan. cont with increase anxiety, increased zoloft to 50mg. 06/15/23 <del>?</del> 24w 4d 144 lb (+5 lb) 100/62 Trace A <del>?</del> Negative 150 24 <del>?</del> LC- no vb/ctx/lof. good fm. u/s now complete and normal. self d/c mj use. repeat tox next visit.protein likely r/t no hydration yet this AM. no s/sx of PEC. LC- no vb/ctx/lof. good fm. u/s now complete and normal. protein likely r/t no hydration yet this AM. no s/sx of PEC. 07/13/23 <del>?</del> 28w 4d 149 lb 8 oz (+10 lb 8 oz) 113/74 Negative <del>?</del> Negative 150 27 <del>?</del> kw- no vb/lof/ctx. good fm. passed glucose. LARC today-requesting Nexplanon. Tdap next visit 07/27/23 <del>?</del> 30w 4d 157 lb (+18 lb) 104/76 <del>?</del> 140 30 <del>?</del> SM- no vb lof good fm no regular ctx 08/10/23 <del>?</del> 32w 4d 156 lb 6 oz (+17 lb 6 oz) 118/76 Negative <del>?</del> Negative 125 32 <del>?</del> JV- no lof, vaginal bleeding, or dec fm. No complaints. 08/24/23 <del>?</del> 34w 4d 165 lb (+26 lb) 119/80 Negative <del>?</del> Negative 140 34 <del>?</del> KW- no vb/lof/ctx. good fm. 09/07/23 <del>?</del> 36w 4d 164 lb (+25 lb) 110/76 <del>?</del> 125 36 Cephalic <del>?</del> SM- no vb lof good fm no regualr ctx 09/14/23 <del>?</del> 37w 4d 165 lb 4 oz (+26 lb 4 oz) 125/73 Negative <del>?</del> Negative 135 37 Cephalic 0 <del>?</del> 20 -3 LC- no vb/ctx/lof. good fm. gbs neg. 09/21/23 <del>?</del> 38w 4d 166 lb 2 oz (+27 lb 2 oz) 115/78 Negative <del>?</del> Negative 120 36 Cephalic 1 <del>?</del> 20 -2 SM- no vb lof good fm no regular ctx 09/27/23 <del>?</del> 39w 3d 168 lb 2 oz (+29 lb 2 oz) 112/72 Negative <del>?</del> Negative 125 36 Cephalic 2 <del>?</del> 50 -2 KW- no vb/lof/reg ctx. good fm. labor precautions. KW- no vb/lof/reg ctx. good fm. labor precautions. MERRICK last week 13. repeat merrick today ordered NST FHR Rate Baby A Baseline: 115 Variability:: Moderate Accelerations:: 15 x 15 Decelerations:: None NST Reactive:: Yes FHR Category:: Category I Uterine Activity:: irregular Assessment & Plan (1) No leakage of amniotic fluid into vagina: COMMENT: ROM plus negative. cat 1 tracing. no cervical change from previous office exam PLAN: Patient presents for triage evaluation secondary to questionable leaking of fluid. negative rom. FHT: Moderate variability reactive no decelerations category I tracing [place]: irreg Contractions Assessment and plan: Reactive NST, reassuring maternal and status patient discharged to home to follow-up in office. See problem list details for additional plan information. Charges/Coding Procedures Urinary/Genital 52xxx-59xxx: 13653-68 non-stress test Interp
== END 2023-09-28 18:45 | disposition home or self-care (01) ==
LOC: WPOUT 17:36 → WP 17:37
PROVIDERS: Referring Provider Registered Nurse; Visit Provider Registered Nurse
DX: Z04.89 Encounter for examination and observation for other specified reasons (principal)
CPT/HCPCS: 59025; 59050; 84112; 99221; G0378

== ENCOUNTER 2023-10-09 19:21 | Inpatient (IN) | payer OTHER, SELFPAY ==
[2023-10-09 07:32] VITALS: BP 136/80; PULSE 78; BMI 27.1
[2023-10-09 07:34] VITALS: PULSE 68; RESP 16; TEMP 36.7; O2SAT 99
[2023-10-09] MEDS: Acetaminophen 500 MG Tablet 1000 MG PO (08:53)
--- NOTE | 2023-10-09 15:47 | PCM.PN.BLA ---
Progress Note pt here for NST due to post dates . She is scheduled for IOL tonight if NST is reactive she will go home and come back tonight for cytotec NST: 120 Baseline, Moderate variability, + accels, no decelerations A/P @ 41 weeks 1 day Return to L&D at 7pm for IOL. Multi Select Codes Urinary/Genital Urinary/Genital CPT Codes: 75020-44 non-stress test Interp
[2023-10-09 19:37] VITALS: BP 135/88; PULSE 72
[2023-10-09 19:38] VITALS: RESP 16; TEMP 37.1
[2023-10-09 20:11] LABS: Absolute Lymphocyte Count 2.24 X10^3/uL (0.83-4.51); Basophil# 0.03 X10^3/uL; Basophil% 0.3 % (0-1); Eosinophil# 0.12 X10^3/uL; Hematocrit 34.8 % (37-47); Hemoglobin 11.2 g/dL (12.0-15.0); Lymphocyte # 2.24 X10^3/ul (0.83-4.51); Lymphocyte % 18.9 % (19-41); Mean Corp Hgb Conc 32.2 g/dL (32-36); Mean Corpuscular Hgb 27.7 pg (27.0-32.0); Mean Corpuscular Volume 85.9 fL (81-99); Mean Platelet Vol. 12.8 fl (6.2-12.0); Monocyte# 1.36 X10^3/uL; Monocyte% 11.5 % (0-10); NRBC Flagged by Analyzer 0 % (0-5); Neutrophil # 7.99 X10^3/uL (2.7-7.7); Neutrophil % 67.5 % (47-70); Platelet Count 234 K/mm3 (150-450); RBC Distribution Width CV 12.8 % (11.6-14.6); RBC Distribution Width SD 39.7 fl (35.1-43.9); Red Blood Count 4.05 M/mm3 (4.2-5.4); White Blood Count 11.8 K/mm3 (4.4-11.0)
[2023-10-09] MEDS: miSOPROStol 25 MCG TABLET VAGINAL (20:45)
[2023-10-09] MEDS: Lactated Ringers 1,000 ML 50 ML IV (20:45)
[2023-10-09 21:31] LABS: Amphetamine Urine VISTA NEGATIVE (<1000 ng/mL); Barbiturate Urine VISTA NEGATIVE (< 200 ng/mL); Benzodiazepine Urine VISTA NEGATIVE (< 200 ng/mL); Cocaine Urine VISTA NEGATIVE (< 300 ng/mL); Ecstacy Urine VISTA NEGATIVE (< 500 ng/mL); Methadone Urine VISTA NEGATIVE (< 300 ng/mL); PCP Urine VISTA NEGATIVE (< 25 ng/mL); THC Urine VISTA NEGATIVE (< 50 ng/mL); Vista UDS pH Range 6
[2023-10-09 21:31] LABS: Syphilis Antibodies Non-reactive
--- NOTE | 2023-10-09 22:32 | HP.PCM.OB_ITS ---
HPI - General General Date of Admission: 10/09/23 HPI Narrative EZEKIEL RODRIGUEZ, is a 23 y/o @ 41 weeks 1 day who presents to L&D for IOL. Maternal Data Information KARISHMA Calculator Estimated Delivery Date Method Current WG Current Estimate 10/01/23 LMP (Certain) 41w 1d Other Estimates 10/14/23 Ultrasound #1 39w 2d 10/03/23 Ultrasound #2 40w 6d PFSH PFSH Medical History Asthma Bacterial vaginitis Hx of gonorrhea Home Medications ?Medication ?Instructions ?Recorded ?Last Taken ?Type multivitamin no.47-iron fum 27 cap PO 02/16/23 Unknown History mg-folate no.1 1 mg-dha 300 mg capsule (PNV-DHA) sertraline 25 mg tablet 50 mg (2 x 25 mg) PO DAILY #30 09/14/23 Unknown Rx TABLETS Allergy/AdvReac Type Severity Reaction Status Date / Time No Known Allergies Allergy Verified 10/09/23 19:41 Family History Mother Spina bifida mild form Surgical History History of tonsillectomy and adenoidectomy Social History adopted: No household members: significant other current occupational status: employed 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 current occupational exposures/hazards: Yes (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 used to put animals to sleep) pets and animals: Yes pets and animals: dog(s) history of recent travel: No sexually active: Yes Smoking Status: Current some day smoker Electronic Cigarette Use: with nicotine quit status: considering quitting alcohol intake: never substance use type: marijuana well-balanced diet: about half the time caffeine: Yes Type: other Number of servings: 1 eating out: 1-3 times/week during the past year weight has: increased > 10 lbs what type of physical activity do you participate in: none greer/anabaptist: None seatbelt use: sometimes do you feel safe at home: Yes additional social history: BF [facility] History 1 Elective abortions Hx Para 0 Spontaneous abortions Hx # Term Pregnancies Ectopic pregnancies Hx # Pregnancies Multiple births # of living children Visit Details Expected Delivery Route/Plan Labor Preferences- CB/BF classes: discussed labor support person: Norman and Sameera (mom) and Alicia (Norman's mom) labor intervention preferences: open to epidural pain management options preferred: [] cut cord/dad catch: [] : wants PP control planned: Nexplanon discussed possible routes of delivery and associated risks: [] special requests: [] Plans Covid status: [] Flu vaccine: declined Tdap vaccine: given Rhogam: na LARC form signed: declined movement and labor precautions reviewed. Problem list reviewed and updated with the most current plan of care details and appropriate orders placed. Relevant counseling for the gestational age provided. Continue routine care and follow up unless otherwise noted in visit notes/problem list details OB Flowsheet Initial Weight: 139 lb Date -?-?-?-?-?-?-?-?-?-?-?-?- EGA Weight BP Urine Prot -?-?-?-?-?-?-?-?-?-?-?-?- Glucose FHR FuHt Pres Dilation -?-?-?-?-?-?-?-?-?-?-?-?- Effaced St Visit Note 02/21/23 -?-?-?-?-?-?-?-?-?-?-?-?- 8w 2d 139 lb 8 oz (+8 oz) 110/72 -?-?-?-?-?-?-?-?-?--?-?-?- 122 -?-?-?-?-?-?-?-?-?-?-?-?- LC- CRL not con with LMP. KARISHMA changed to 10/14/2023. LC- CRL not con with LMP. 4. 0mm KARISHMA changed to 10/14/2023. deciding on nipt/carrier screening. urine tox sent for daily marijuana use. vit b6/unisom for nausea. to call for Rx if needed. 03/23/23 -?-?-?-?-?-?-?-?-?-?-?-?- 12w 4d 141 lb (+2 lb) 124/70 Negative -?-?-?-?-?-?-?-?-?-?-?-?- Negative 160 -?-?-?-?-?-?-?-?-?-?-?-?- JV- no lof, vaga inal bleeding, ro cramping. CRL today is more consistent with GA. changing due date back to 09/30/22. NIPT ordered. sending in reglan. 04/20/23 -?-?-?-?-?-?-?-?-?-?-?-?- 16w 4d 136 lb 6 oz (-2 lb 10 oz) 118/76 Negative -?-?-?-?-?-?-?-?-?-?-?-?- Negative 156 -?-?-?-?-?-?-?-?-?-?-?-?- inc anxiety. sta rt zoloft. stopped mj. still vaping LC- no vb/cramping. inc anxi ety since stopping MJ. wants to restart zoloft. still vaping, enc cessation. LC- no vb/cramping. inc anxi ety since stopping MJ. wants to restart zoloft. still vaping, enc cessation. declines afp. mfm anatomy ordered 05/18/23 -?-?-?-?-?-?-?-?-?-?-?-?- 20w 4d 138 lb 6 oz (-10 oz) 136/74 Negative -?-?-?-?-?-?-?-?-?-?-?-?- Negative 147 -?-?-?-?-?-?-?-?-?-?-?-?- LC- no vb/crampi ng. needs additional views to complete anatomy scan. cont with increase anxiety, increased zoloft to 50mg. 06/15/23 -?-?-?-?-?-?-?-?-?-?-?-?- 24w 4d 144 lb (+5 lb) 100/62 Trace A -?-?-?-?-?-?-?-?-?-?-?-?- Negative 150 24 -?-?-?-?-?-?-?-?-?-?-?-?- LC- no vb/ctx/lo f. good fm. u/s now complete and normal. self d/c mj use. repeat tox next visit.protein likely r/t no hydration yet this AM. no s/sx of PEC. LC- no vb/ctx/lof. good fm. u/s now complete and normal. protein likely r/t no hydration yet this AM. no s/sx of PEC. 07/13/23 -?-?-?-?-?-?-?-?-?-?-?-?- 28w 4d 149 lb 8 oz (+10 lb 8 oz) 113/74 Negative -?-?-?-?-?-?-?-?-?-?-?-?- Negative 150 27 -?-?-?-?-?-?-?-?-?-?-?-?- kw- no vb/lof/ct x. good fm. passed glucose. [facility] today-requesting Nexplanon. Tdap next visit 07/27/23 -?-?-?-?-?-?-?-?-?-?-?-?- 30w 4d 157 lb (+18 lb) 104/76 -?-?-?-?-?-?-?-?-?-?-?-?- 140 30 -?-?-?-?-?-?-?-?-?-?-?-?- SM- no vb lof go od fm no regular ctx 08/10/23 -?-?-?-?-?-?-?-?-?-?-?-?- 32w 4d 156 lb 6 oz (+17 lb 6 oz) 118/76 Negative -?-?-?-?-?-?-?-?-?-?-?-?- Negative 125 32 -?-?-?-?-?-?-?-?-?-?-?-?- JV- no lof, vagi nal bleeding, or dec fm. No complaints. 08/24/23 -?-?-?-?-?-?-?-?-?-?-?-?- 34w 4d 165 lb (+26 lb) 119/80 Negative -?-?-?-?-?-?-?-?-?-?-?-?- Negative 140 34 -?-?-?-?-?-?-?-?-?-?-?-?- KW- no vb/lof/ct x. good fm. 09/07/23 -?-?-?-?-?-?-?-?-?-?-?-?- 36w 4d 164 lb (+25 lb) 110/76 -?-?-?-?-?-?-?-?-?-?-?-?- 125 36 Cephalic -?-?-?-?-?-?-?-?-?-?-?-?- SM- no vb lof go od fm no regualr ctx 09/14/23 -?-?-?-?-?-?-?-?-?-?-?-?- 37w 4d 165 lb 4 oz (+26 lb 4 oz) 125/73 Negative -?-?-?-?-?-?-?-?-?-?-?-?- Negative 135 37 Cephalic 0 -?-?-?-?-?-?-?-?-?-?-?-?- 20 -3 LC- no vb/ ctx/lof. good fm. gbs neg. 09/21/23 -?-?-?-?-?-?-?-?-?-?-?-?- 38w 4d 166 lb 2 oz (+27 lb 2 oz) 115/78 Negative -?-?-?-?-?-?-?-?-?-?-?-?- Negative 120 36 Cephalic 1 -?-?-?-?-?-?-?-?-?-?-?-?- 20 -2 SM- no vb lof good fm no regular ctx 09/27/23 -?-?-?-?-?-?-?-?-?-?-?-?- 39w 3d 168 lb 2 oz (+29 lb 2 oz) 112/72 Negative -?-?-?-?-?-?-?-?-?-?-?-?- Negative 125 36 Cephalic 2 -?-?-?-?-?-?-?-?-?-?-?-?- 50 -2 KW- no vb/ lof/reg ctx. good fm. labor precautions. KW- no vb/lof/reg ctx. good fm. labor precautions. MERRICK last week 13. repeat merrick today ordered 10/03/23 -?-?-?-?-?-?-?-?-?-?-?-?- 40w 2d 171 lb 6 oz (+32 lb 6 oz) 125/79 Negative -?-?-?-?-?-?-?-?-?-?-?-?- Negative 120 37 Cephalic 1 -?-?-?-?-?-?-?-?-?-?-?-?- 50 -2 JV- pt com [place] of movement being less. no loss of fluid, vaginal bleeding, or contractions. wants to be induced sooner. NSt JV- pt complains of movement being less. no loss of fluid, vaginal bleeding, or contractions. wants to be induced sooner. NSt is reactive .her mother is demanding a repeat MERRICK. MERRICK on last week was 10. will order another one for tomorrow. ROS Constitutional Constitutional: Denies change in weight, fatigue, fever(s), headache(s), poor appetite or weakness Eyes Eyes: Denies blurry vision, change in vision, seeing flashes or spots in vision ENT HEENT: Denies dizziness, headache(s), loss taste/smell or sore throat Cardiovascular Cardiovascular: Denies chest pain, dizziness, dyspnea, irregular heart rhythm, leg edema, palpitations, rapid heart rate or vomiting Respiratory/Chest Respiratory/Chest: Denies chest tightness, cough, dyspnea or breast pain Gastrointestinal Gastrointestinal: Denies abdominal pain, anorexia, constipation, cramping, diarrhea, hemorrhoids, vomiting or weight changes Genitourinary Genitourinary: Denies dysuria, flank pain, genital lesions, genital pain, urinary frequency or urinary urgency Musculoskeletal Musculoskeletal: Denies back pain, difficulty walking, joint pain, limited range of motion, muscle cramps or numbness Integumentary Integumentary: Denies lesions or unusual bruising Neurologic Neurologic: Denies abnormal movements, abnormal speech, dizziness, numbness, seizure-like activity or syncope Psychiatric Psychiatric: Denies anxiety, behavioral changes, change in appetite, change in libido, cognitive impairment, confusion, depression, difficulty concentrating, hallucinations or suicidal thoughts Endocrine Endocrinology: Denies excessive sweating, polydipsia or polyuria Hematologic/Lymphatic Hematologic/Lymphatic: Denies easy bleeding, easy bruising or lymphadenopathy Allergic/Immunologic Allergic/Immunologic: Denies itchy eyes, lip swelling, seasonal rhinorrhea, rhinitis, throat swelling, tongue swelling, eczemia, wheezing or asthma Vital Signs Vital Signs Vital Signs: 10/09/23 07:32 10/09/23 07:32 10/09/23 07:34 Temperature Temperature Source Pulse Rate 78 68 Respiratory Rate Blood Pressure 136/80 H BP Systolic 136 BP Diastolic 80 Pulse Ox 10/09/23 07:34 10/09/23 07:34 10/09/23 07:34 Temperature Temperature Source Temporal Pulse Rate Respiratory Rate 16 Blood Pressure BP Systolic BP Diastolic Pulse Ox 99 10/09/23 07:34 10/09/23 19:37 10/09/23 19:37 Temperature 98.1 F Temperature Source Pulse Rate 72 Respiratory Rate Blood Pressure 135/88 H BP Systolic 135 BP Diastolic 88 Pulse Ox 10/09/23 19:38 10/09/23 19:38 10/09/23 19:38 Temperature 98.8 F Temperature Source Temporal Pulse Rate Respiratory Rate 16 Blood Pressure BP Systolic BP Diastolic Pulse Ox Weight Weight: 173 lb Body Mass Index (BMI) 27.1 Physical Exam Const alert, oriented x3, no apparent distress and healthy appearing General Appearance: cooperative; Negative for anxious HEENT normocephalic Face and Sinus: normal facial exam Eyes EOMs intact bilaterally and no scleral icterus General Eye: normal appearance of both eyes Neck full ROM and supple Lymph Lymphatic: no lymphadenopathy noted Chest Chest: abnormal inspection of the chest Resp normal respiratory effort Effort and Inspection: able to speak in complete sentences Cardio regular rate GI soft to palpation and non-tender Inspection: gravid Palpation: soft; Negative for tender external exam normal Amniotic Fluid: ROM+plus Back/Spine no CVA tenderness Extremity normal to inspection, full ROM and no clubbing, cyanosis or edema General Extremity: Negative for calf tenderness or edema Skin Lesions: no lesions Rashes: no rashes Psych mental status grossly normal Labs Labs Labs: Blood Type O POSITIVE Antibody Screen NEGATIVE Hct 34.8 % (37-47) L Hgb 11.2 g/dL (12.0-15.0) L Obstetrics Ultrasound Syphilis Total Ab Non-reactive Rubella IgG Antibody Reactive (Nonreactive) Hep Bs Antigen Non-Reactive (Nonreactive) Hepatitis C Antibody Non-Reactive (Nonreactive) Chlamydia DNA (AMARIS) Negative (Negative) N.gonorrhoeae DNA (AMARIS) Negative (Negative) HIV 1&2 Antibody Non-Reactive (Nonreactive) Glucose 1 Hr 50 gm 86 mg/dL (70-140) Assessment & Plan (1) No leakage of amniotic fluid into vagina: COMMENT: ROM plus negative. cat 1 tracing. no cervical change from previous office exam (2) Uterine size-date discrepancy, third trimester: COMMENT: US ordered, nl growth & fluid levels (3) Supervision of high-risk : COMMENT: PRR , KARISHMA 10/01/23, boy [place] BF Norman (4) Marijuana use during : COMMENT: tox screen, cessation recommended. stopped 04/06. repeat tox negative (5) Depression: COMMENT: stable, on zoloft. (6) Anxiety: COMMENT: counseling enc. started on zoloft 25 mg after discussing r/b/a, increased to 50mg (7) : QUALIFIERS: Weeks of gestation: 40 weeks Qualified Code(s): Z3A.40 - 40 weeks gestation of COMMENT: GBS Negative, NIPT low risk, declined ntd and carrier testing. nl anatomy. (8) Vaping nicotine dependence, non-tobacco product: COMMENT: cutting down, considering quitting, counseling provided PLAN: Plan Patient presents IOL, plan management for with cytotec tonight. Pain management: plans epidural. GBS negative. Management of any complications: none I have reviewed the [facility] and made any clinically relevant updates.
[2023-10-10] VITALS (42 sets, daily range): BP systolic 112–148; BP diastolic 64–86; PULSE 54–88; RESP 16; TEMP 36.4–37.3; O2SAT 89–100
[2023-10-10] MEDS: miSOPROStol 25 MCG TABLET VAGINAL ×2 (00:58→05:08)
[2023-10-10] MEDS: Acetaminophen 500 MG Tablet PO (05:07)
[2023-10-10] MEDS: LACTATED RINGERS 500 ML 999 ML IV ×3 (06:43→20:34)
--- NOTE | 2023-10-10 07:47 | PN_ITS ---
Progress Note Coping well with contractions current tracing: FHT: 140 Moderate variability reactive no decelerations category I tracing [place]: 1.5-4 Contractions Membranes: intact SVE:2/80/-1 A/P: Continue with position changes had Cytotec dose around 0600am Reassess SVE in 2 hours to determine if yoder bulb is needed. Made cervical change form 2 hours ago Epidural per anesthesia when requested GBS neg Anticipate Dr Shane aware of above assessment and agrees with plan of care Assessment & Plan Assessment/Plan (1) Encounter for induction of labor: (2) No leakage of amniotic fluid into vagina: (3) Uterine size-date discrepancy, third trimester: (4) Supervision of high-risk : (5) Marijuana use during : (6) Depression: (7) Anxiety: (8) : QUALIFIERS: Weeks of gestation: 40 weeks Qualified Code(s): Z3A.40 - 40 weeks gestation of (9) Vaping nicotine dependence, non-tobacco product: Multi Select Codes Urinary/Genital Urinary/Genital CPT Codes: No Charge
[2023-10-10] MEDS: fentaNYL 100 MCG/2 ML Ampul IV (10:45)
[2023-10-10] MEDS: Lactated Ringers 1,000 ML 50 ML IV (11:02)
[2023-10-10] MEDS: fentaNYL-bupivacaine (epidural) 100 ML BAG EPIDURAL ×2 (11:47→17:10)
--- NOTE | 2023-10-10 12:25 | PCM.PN.BLA ---
Progress Note comfortable with epidural current tracing: FHT: 120 Moderate variability reactive no decelerations category I tracing [place]: 1.5-3 minute Contractions Membranes:AROM Meconium 1215-ped notified SVE: reviewed tracing abnormalities since last note: collaboration with Dr Garland at this time for update on patient status and FHT tracing. A/P: Continue with position changes Start/Titrate pitocin per protocol Epidural per anesthesia GBS neg Anticipate Dr Shane aware of above assessment and agrees with plan of care Assessment & Plan Assessment/Plan (1) Encounter for induction of labor: (2) No leakage of amniotic fluid into vagina: (3) Uterine size-date discrepancy, third trimester: (4) Supervision of high-risk : (5) Marijuana use during : (6) Depression: (7) Anxiety: (8) : QUALIFIERS: Weeks of gestation: 40 weeks Qualified Code(s): Z3A.40 - 40 weeks gestation of (9) Vaping nicotine dependence, non-tobacco product: Multi Select Codes Urinary/Genital Urinary/Genital CPT Codes: No Charge
[2023-10-10] MEDS: Oxytocin 15 Units/NS 250ml 15 UNITS/250 ML IV.SOLN 2 UNITS IV (13:55)
[2023-10-10] MEDS: Ondansetron 4 MG/2 ML Vial IV (14:20)
--- NOTE | 2023-10-10 19:14 | PCM.PN.BLA ---
Progress Note comfortable with epidural current tracing: FHT: 115 Moderate variability reactive no decelerations category II tracing [place]: 2-3 minute Contractions Membranes: meconium SVE:/-1 reviewed tracing abnormalities since last note: collaboration with Dr Garland at this time for Cat II FHT tracing. reviewed tracing from home. agrees reassuring A/P: Continue with position changes Titrate pitocin per protocol Epidural per anesthesia GBS neg Anticipate Dr Shane aware of above assessment and agrees with plan of care Assessment & Plan Assessment/Plan (1) Encounter for induction of labor: (2) No leakage of amniotic fluid into vagina: (3) Uterine size-date discrepancy, third trimester: (4) Supervision of high-risk : (5) Marijuana use during : (6) Depression: (7) Anxiety: (8) : QUALIFIERS: Weeks of gestation: 40 weeks Qualified Code(s): Z3A.40 - 40 weeks gestation of (9) Vaping nicotine dependence, non-tobacco product: Multi Select Codes Urinary/Genital Urinary/Genital CPT Codes: No Charge
[2023-10-10] MEDS: Lactated Ringers 1,000 ML 200 ML IV (19:33)
--- NOTE | 2023-10-10 21:16 | PN_ITS ---
Progress Note Treating Engineer Helper called me to assess patient due to low position and variable declerations. current tracing: FHT: Moderate variability with variable decelerations for most contractions for the last hour. [place]: q 1.5-4 minutes Contractions cx is 4/80/0 A/P: start amnioinfusion now and decide on intervention. She has made only 2 cm of c hange in 14 hours despite adequate contractions.
[2023-10-10] MEDS: 0.9% Normal Saline 100 ML IV.SOLN. 300 ML INTRA-UTER (21:22)
[2023-10-10] MEDS: Cefazolin 2 GM in 0.9% Normal Saline (100mL Bag) 100 ML IV (21:52)
[2023-10-10] MEDS: Oxytocin 10 UNITS/ML Vial IM (22:06)
--- NOTE | 2023-10-10 22:30 | EX.PCM.OBRPT ---
Assessment & Plan (1) Encounter for induction of labor: (2) No leakage of amniotic fluid into vagina: COMMENT: ROM plus negative. cat 1 tracing. no cervical change from previous office exam (3) Uterine size-date discrepancy, third trimester: COMMENT: US ordered, nl growth & fluid levels (4) Supervision of high-risk : COMMENT: PRR , KARISHMA 10/01/23, boy [place] BF Norman (5) Marijuana use during : COMMENT: tox screen, cessation recommended. stopped 04/06. repeat tox negative (6) Depression: COMMENT: stable, on zoloft. (7) Anxiety: COMMENT: counseling enc. started on zoloft 25 mg after discussing r/b/a, increased to 50mg (8) : QUALIFIERS: Weeks of gestation: 40 weeks Qualified Code(s): Z3A.40 - 40 weeks gestation of COMMENT: GBS Negative, NIPT low risk, declined ntd and carrier testing. nl anatomy. (9) Vaping nicotine dependence, non-tobacco product: COMMENT: cutting down, considering quitting, counseling provided Maternal Data Information KARISHMA Calculator Estimated Delivery Date Method Current WG Current Estimate 10/01/23 LMP (Certain) 41w 2d Other Estimates 10/14/23 Ultrasound #1 39w 3d 10/03/23 Ultrasound #2 41w 0d Final KARISHMA: 10/01/23 Final KARISHMA Source: LMP Gestational age: 41 weeks 2 days [place] Doctor Who Attended Delivery: Blanca Monterroso Details Operative Information Pre-Operative Diagnosis: 23 y/o @ 41 weeks 1 day, intolerance to labor and failure to progress Post-Operative Diagnosis: 23 y/o @ 41 weeks 1 day, intolerance to labor and failure to progress Classification: DERICK Procedure Type: low transverse Type of Anesthesia: Epidural Anesthesiologist: Cali Rubin Antibiotic Given: Ancef 2 grams IV x1 and Zithromax 500 mg/5 mL X1 Drain: [place] to straight drain Estimated Blood Loss: 500cc Fluids Replaced: 800cc Time of Delivery: 21:59 Findings Description of Procedure: Procedure: The patient was brought to the operating room and spinal anesthesia was found to be adequate. She was prepped and draped in the normal sterile fashion and was placed in a dorsal supine position with a leftward tilt. Pfannenstiel skin incision was made with a scalpel and carried through to the underlying layers. The fascia was nicked in the midline and extended laterally using Velez scissors. The anterior aspect of the fascia was grasped with Nicho clamps and the underlying rectus muscles dissected off using the Metzenbaum scissors. The inferior aspect the fascia was also grasped with Nicho clamps and the underlying rectus muscle dissected off with the Metzenbaum scissors. The rectus muscles were in the midline. Peritoneum was entered sharply. The uterus was identified and a bladder blade was inserted into the abdomen. Bladder flap was created off the uterus using Metzenbaum scissors. A transverse incision was made with a scalpel and extended laterally manually. The 's head was grasped with the help of my medical practice assistant and fundal pressure the infant was delivered through the uterine incision without difficulty. A nuchal cord was reduced without difficulty. The mouth and nares were bulb suctioned. After a 30 second delay the cord was clamped and cut. The was handed off to the awaiting head athletic trainer for routine assessment. Placenta was delivered manually without difficulty. The uterus was exteriorized and cleared of all clots and debris. Incision was closed with an 0 Vicryl suture in a running locked fashion. Second layer of 1-0 monocryl suture was used in imbricating manner to create excellent closure and hemostasis. The uterus was returned to the abdomen. The gutters were cleared of all clots and debris. The peritoneum was closed in a pursestring pattern using a 3-0 Vicryl suture. This muscle was reapproximated with a 3-0 Vicryl. The fascia was closed with an 0-PDS suture. Subcutaneous tissue layer was closed using a plain gut suture. The skin was closed with a 4-0 Monocryl subcuticular stitch. The skin was also sealed with surgical glue. The patient tolerated the procedure well sponge lap and needle counts were correct at each tissue closure plane and the patient is now being brought to the recovery room in stable condition Presentation: Positive for Vertex Amniotic Fluid Description: Moderate meconium Placental Delivery Description: Expressed Placenta Disposition: [facility] Cord Vessel Description: 3 Vessels Cord Entanglement: Around neck x 1, loose Nuchal Cord Compression: Without compression A Gender: Male (1 minute): 8 (5 minute): 9 Delayed Cord Clamping: Yes Complications Risks of Surgery Discussed w/Patient: Anesthesia Risks, Infection, Need for Future C-Sections and Injury to surrounding structure(s) including bowel and bladder Multi Select Codes Urinary/Genital Urinary/Genital CPT Codes: 09019 Delivery [facility]
--- NOTE | 2023-10-10 22:36 | DCINST_ITS ---
Discharge Instructions Diet Discharge Diet: No restrictions Activity Discharge Activity: May Not Drive (for 2 weeks or while taking narcotic pain medications.), May Shower and May Take a Tub Bath (in 7 days.) May resume sexual activity in: 4-6 weeks Weight Bearing Status: Full weight bearing Lifting Restrictions: 20 pounds Dressing / Incision Call your doctor if your incision/area has: Continuous Slow Oozing, Sudden Increased Bleeding, Increased Pain/ Swelling, Increased Redness and Foul Smelling Discharge Call your doctor if you observe: Fever of 101 or Higher and Using more than 1 pad per hour Suture Line Care: Avoid Pulling/Pushing and Avoid Pinching/Bending Cleanse incision/area with: Soap & Water and Keep Dressing Clean & Dry Follow Up Care Please Follow Up With: Tonya Garland DO When: Call [phone] to make an appointment for an incision check in 1-2 weeks. Test Results: Test results from this visit will be discussed in further detail at your follow- up appointment, if applicable. Discharge Plan Admission Admit Date/Time: 10/09/23 19:00 Primary Reason for Your Visit: section Attending Provider: Tonya Garland Primary Care Provider: Karla Gonsalez Primary Discharge Orders/Prescriptions Prescriptions: New ibuprofen 800 mg tablet 800 mg PO Q8H PRN (Reason: pain) Qty: 30 0RF oxycodone-acetaminophen [Percocet] 5-325 mg tablet 1 tab PO Q4H PRN (Reason: pain) 7 Days Qty: 20 0RF Rx Instructions: 1-2 tabs q 4 hrs as needed for pain No Action PNV-DHA 27 mg iron-1 mg -300 mg capsule PO sertraline 25 mg tablet 50 mg PO DAILY Qty: 30 6RF Referrals / Follow Up: Karla Gonsalez Primary [Primary Care Provider] - Disposition Disposition (needs filled in before D/C Order can be placed): Home, Self Care
[2023-10-10] MEDS: Oxytocin 15 Units/NS 250ml 15 UNITS/250 ML IV.SOLN 83 UNITS IV (23:00)
[2023-10-10] MEDS: Azithromycin 500 MG in Dextrose 5%-Water (250mL Bag) 250 ML 250 MG IV (23:00)
[2023-10-10] MEDS: Acetaminophen 500 MG Tablet 1000 MG PO (23:10)
[2023-10-10] MEDS: Ketorolac 30 MG/ML Syringe IV (23:10)
[2023-10-11] VITALS (15 sets, daily range): BP systolic 99–129; BP diastolic 60–83; PULSE 57–79; RESP 14–18; TEMP 36.4–36.9; O2SAT 97–100
[2023-10-11] MEDS: 0.9% Saline Lock 10 ML Syringe IV ×4 (05:05→17:52)
[2023-10-11] MEDS: Ketorolac 30 MG/ML Syringe IV ×3 (05:06→17:52)
[2023-10-11] MEDS: Acetaminophen 500 MG Tablet 1000 MG PO ×3 (05:06→17:51)
[2023-10-11 05:48] LABS: Hematocrit 29.9 % (37-47); Hemoglobin 9.4 g/dL (12.0-15.0); Mean Corp Hgb Conc 31.4 g/dL (32-36); Mean Corpuscular Hgb 27.8 pg (27.0-32.0); Mean Corpuscular Volume 88.5 fL (81-99); Mean Platelet Vol. 12.3 fl (6.2-12.0); Platelet Count 153 K/mm3 (150-450); RBC Distribution Width SD 42.5 fl (35.1-43.9); Red Blood Count 3.38 M/mm3 (4.2-5.4); White Blood Count 15.4 K/mm3 (4.4-11.0)
--- NOTE | 2023-10-11 07:19 | PCM.PN.OB ---
Subjective Subjective Patient is laying in bed comfortably without complaints. She states that she slept on an off during the night. Lochia is mild and pain is minimal. Objective Data Objective Data Vital Signs: Vital Signs Temp Pulse Resp BP Pulse Ox O2 Del Method 97.6 F L 78 16 112/62 99 Room Air 10/11/23 06:46 10/11/23 06:46 10/11/23 06:46 10/11/23 06:46 10/11/23 06:46 10/11/23 06:46 Oxygen Delivery Method Room Air Weight: 173 lb Body Mass Index (BMI) 27.1 Intake & Output: Intake and Output for Last 24 Hours 10/09/23 10/10/23 10/11/23 23:59 23:59 23:59 Intake Total 3272.26 / 3272.26 505 / 505 Output Total 3950 / 3950 2600 / 2600 Balance -677.74 / -677.74 -2095 / -2095 Lab / Micro Data 10/11/23 05:39 Labs: Laboratory Results - last 24 hr 10/11/23 05:39: WBC 15.4 H, RBC 3.38 L, Hgb 9.4 L, Hct 29.9 L, MCV 88.5, MCH 27.8, MCHC 31.4 L, RDW Std Deviation 42.5, RDW Coeff of Nani 13.0, Plt Count 153, MPV 12.3 H ROS Constitutional Constitutional: Reports systems reviewed and no addt'l complaints, except as documented Cardiovascular Cardiovascular: Denies chest pain, dizziness, dyspnea or irregular heart rhythm Respiratory/Chest Respiratory/Chest: Denies cough, pain on inspiration or shortness of breath at rest Gastrointestinal Gastrointestinal: Denies abdominal pain, nausea or vomiting Genitourinary Genitourinary: Denies burning urination Musculoskeletal Musculoskeletal: Denies muscle cramps, muscle spasms or muscle weakness Neurologic Neurologic: Denies confusion, dizziness, headache(s) or lack of coordination Psychiatric Psychiatric: Denies anxiety, behavioral changes or depression Physical Exam HEENT normocephalic Resp normal respiratory effort and normal air movement GI soft to palpation, non-tender and non-distended Rectal Exam: other Other Details: Incision is clean, dry, and intact no CVA tenderness Extremity normal to inspection General Extremity: edema bilateral (trace ) Assessment & Plan (1) Status post section: (2) Depression: COMMENT: stable, on zoloft. (3) Anxiety: COMMENT: counseling enc. started on zoloft 25 mg after discussing r/b/a, increased to 50mg (4) Vaping nicotine dependence, non-tobacco product: COMMENT: cutting down, considering quitting, counseling provided PLAN: Plan s/p LTCS PPD # 1 1. routine post care 2. breast feeding- support given 3. rh positive 4. rubella immune.
--- NOTE | 2023-10-11 09:09 | NURSING ---
Called Dr. Martins to update that Pt c/o pain when ambulating to BR and with abdominal checks. Rates her pain a 5-7/10 on pain scale. Order received for a one time dose of dilaudud IV 0.2mg. If Pt requires any furher extra pain medication, Dr. Martins wants anesthesia consulted if it is before 24 hours Post-op
[2023-10-11] MEDS: Sertraline 50 MG Tablet PO (09:57)
[2023-10-11] MEDS: Senna/Docusate Sodium 1 Tablet PO (09:57)
[2023-10-11] MEDS: HYDROmorphone 0.5 MG/0.5 ML SYRINGE 0.2 MG IV (09:57)
[2023-10-11] MEDS: oxyCODONE 5 MG Tablet PO (22:56)
[2023-10-12] MEDS: Acetaminophen 500 MG Tablet 1000 MG PO ×5 (00:11→23:43)
[2023-10-12] MEDS: Ibuprofen 600 MG Tablet PO ×5 (00:11→23:43)
[2023-10-12 01:40] VITALS: BP 113/63; PULSE 64; RESP 16; TEMP 36.6
[2023-10-12 08:09] VITALS: BP 109/67; PULSE 70; RESP 16; TEMP 36.7; O2SAT 99
[2023-10-12] MEDS: oxyCODONE 5 MG Tablet PO ×3 (08:28→21:59)
[2023-10-12] MEDS: Sertraline 50 MG Tablet PO (10:36)
[2023-10-12] MEDS: Senna/Docusate Sodium 1 Tablet PO (10:36)
--- NOTE | 2023-10-12 11:34 | PCM.PN.OB ---
Subjective Subjective Patient doing well without complaints. Tolerating PO. Ambulating and voiding without difficulty. Feeding well. Denies chest pain, shortness of breath, calf pain/swelling, fevers, chills, lightheadedness. Objective Data Objective Data Vital Signs: Vital Signs Temp Pulse Resp BP Pulse Ox O2 Del Method 98.1 F 70 16 109/67 99 Room Air 10/12/23 08:09 10/12/23 08:09 10/12/23 08:09 10/12/23 08:09 10/12/23 08:09 10/12/23 08:09 Oxygen Delivery Method Room Air Weight: 173 lb Body Mass Index (BMI) 27.1 Intake & Output: Intake and Output for Last 24 Hours 10/10/23 10/11/23 10/12/23 23:59 23:59 23:59 Intake Total 3272.26 / 3272.26 505 / 505 Output Total 3950 / 3950 3300 / 3300 Balance -677.74 / -677.74 -2795 / -2795 Lab / Micro Data 10/11/23 05:39 Physical Exam HEENT normocephalic Resp normal respiratory effort and normal air movement GI soft to palpation, non-tender and non-distended Rectal Exam: other Other Details: Incision is marked without additional drainage, dry, and intact no CVA tenderness Extremity normal to inspection General Extremity: edema bilateral (trace ) Assessment & Plan (1) Status post section: COMMENT: JV cs CPD (2) Anxiety: COMMENT: counseling enc. started on zoloft 25 mg after discussing r/b/a, increased to 50mg (3) Vaping nicotine dependence, non-tobacco product: COMMENT: cutting down, considering quitting, counseling provided PLAN: Plan s/p LTCS PPD # 2 1. routine post care 2. breast feeding- support given 3. rh positive 4. rubella immune 5. plan d/c tomorrow
[2023-10-12 14:03] VITALS: BP 109/62; PULSE 68; RESP 16; TEMP 36.7; O2SAT 99
--- NOTE | 2023-10-12 19:34 | CASEMGMT ---
Social Work Assessment Labor and Delivery Unit Patient Address: [address] [place] [address] [address] [place] [address] Phone number: Date of Referral: 10/11/2023 Time of Referral:? 16:07 Referred By: Mikayla Carolina Date of Intervention: ??10/12/23 Time of Intervention:? 17:11 Reason for Referral:? On Zoloft, hx of THC use in Nov. History obtained from: medical records and mother of baby (MOB). Father of baby (FOB) and Maternal grandmother (MGM) also in the room and provided some input. Household composition: MOB, FOB, Baby and MOB's best friend. Patient's parent/guardian status:? Parents of the baby are not but have been together for 2.5 years. Dad is involved and will be living in household and will be actively helping provide care for baby. No other children in the home and MOB denied any safety concerns, hx of or current domestic violence. ? Medical History: ?This is KD's first . Records review confirmed that KD received regular scheduled care throughout her , starting at 8 weeks. It should be noted that KD tested positive for marijuana during her 02/21/23 visit however tested negative on subsequent visit on 05/18/23 and again at time of delivery (10/09/23). Baby's birthweight: 2960 g, Apgars: 8 and 9. KD stated she had originally expected to have a vaginal delivery however ended up having to have an emergency which she stated went well. Educational Status:? KD reported education level as some college. She denied any literacy concerns and can read and write. Financial Status: Both MOB and FOB work and reported they are financially able to meet basic needs of baby and family. KD expressed an interest in [facility] which health and social care teacher provided. Infant Supplies:?? KD reported she has all of the supplies she needs at home to care for the baby which FOMaria E and KATRINA both confirmed. This includes but is not limited to crib, bottles, clothing, diapers and formula. They also have a car seat for baby. Childcare/Caregiver(s):? MOB's best friend as well as MGP's and PGP's will all be able to provide childcare for baby while parents are at work. Transportation:?? Denied any concerns. Parents of baby are licensed drivers and are able to get to and from all needed appointments without assistance. Programs/Agencies Involved: ??None at this time however will be getting connected to [facility] and [facility]. Children Services/Legal Issues:???Denied Behavioral Health Issues: ??Mental Health History:???Hx of depression and anxiety. KD is currently being medically treated with Zoloft which she reported a positive response to. Previous connection to a mental health therapist which she also reported a positive experience with and stated she will be willing to get re-connected in the future if ever needed. MOB denied any previous or hx of suicidal ideation. Substance Use History:??Yes; hx of marijuana. Shed denied any alcohol use or any other drug use. Family History:?Not discussed. Drug Screens: Positive for Marijuana on 02/21/23 at which point KD had been reportedly using daily. All negative screens thereafter. KD reported she had increased levels of anxiety after marijuana usage stopped at which point she went on Zoloft which she stated helped manage the anxiety. Pending baby meconium.. [place] Depression Scale completed and attached to this note. Score of 4. Family/Social Stressors:? Denied. MOB stated she's able to ask for help when needed to manage stress. Support Systems: FOB, friends and MOB and FOB's parents. KD reported her village is strong. Depression/Shaken Baby/Safe Sleeping: Education provided for PPD, SBS and SS. Both parents reported understanding and denied any questions. SW also provided handouts and resources. ? ASSESSMENT:? KD consented to visit with health and social care teacher and social workers preparation department supervisor. Present were MOB, FOB and MGM. At the end of the visit, visitors left upon request for private conversation with MOB to assess for depression, mental health, substance abuse and domestic violence. MOB was alert, engaged and asked/answered questions appropriately. She was nursing upon entry and was noted to be attentive to baby. Positive interaction was observed. Mother was holding baby in a safe manor, looked at baby often and made sure baby was wrapped in a blanket. MGM also was observed holding and interacting with baby positively as well. No concerns noted. FOB was observed laying on the couch upon entry and wasn't verbal or engaged unless spoken to. MOB and MGM smiled and talked with ease during assessment and didn't present with any outstanding concerns during the time of contact. MOB reported she was doing good and had been getting plenty of sleep since delivery. She reported she's been keeping up with baby's feedings. Safe Plan of Care for related to substance use:? KD tested negative after she found out she was , denied any additional use during and denied and plans to se again in the future. ?MOB stated if she ever needs help with anything at all, she will reach out to her family, FOB, friends or a therapist to seek help and guidance. PLAN:? Mom and baby to be discharged to home when ready. RENETTA provided resources to MOB for [facility] which included WIC and will make a referral to [facility]. Tonya Chung, [employer] DIRECTOR, [employer]PAR[employer]
[2023-10-12 19:43] VITALS: BP 126/80; PULSE 70; RESP 16; TEMP 36.8; O2SAT 98
[2023-10-13 01:51] VITALS: BP 108/68; PULSE 65; RESP 16; TEMP 36.6; O2SAT 99
[2023-10-13] MEDS: oxyCODONE 5 MG Tablet PO (04:52)
[2023-10-13] MEDS: Ibuprofen 600 MG Tablet PO (05:39)
[2023-10-13] MEDS: Acetaminophen 500 MG Tablet 1000 MG PO (05:40)
[2023-10-13 08:15] VITALS: BP 109/81; PULSE 64; RESP 16; TEMP 36.7; O2SAT 100
--- NOTE | 2023-10-13 08:43 | PCM.DC.SUM ---
Providers Date of Admission: 10/09/23 Primary Care Physician: Karla Primary Care Phys Reason For Visit: C SECTION Diagnosis Discharge Diagnosis (1) Status post section: Status: Acute Code(s): Z98.891 - History of uterine scar from previous surgery (2) Anxiety: Status: Acute Code(s): F41.9 - Anxiety disorder, unspecified (3) Vaping nicotine dependence, non-tobacco product: Status: Acute Code(s): F17.200 - Nicotine dependence, unspecified, uncomplicated Plan s/p LTCS PPD # 2 1. routine post care 2. breast feeding- support given 3. rh positive 4. rubella immune 5. plan d/c tomorrow Medications at Discharge Home Medications multivitamin no.47-iron fum 27 mg-folate no.1 1 mg-dha 300 mg capsule (PNV-DHA) cap PO 02/16/23 sertraline 25 mg tablet 50 mg (2 x 25 mg) PO DAILY #30 TABLETS 09/14/23 ibuprofen 800 mg tablet 800 mg PO Q8H PRN pain #30 tabs 10/10/23 oxycodone-acetaminophen 5 mg-325 mg tablet (Percocet) 1 tab PO Q4H PRN pain 7 days #20 tabs 10/10/23 Hospital Course Operations section Summary of Care Provided Hospital Course: s/p cs for intolerance. stable course. Physical Exam HEENT normocephalic Resp normal respiratory effort and normal air movement GI soft to palpation, non-tender and non-distended Rectal Exam: other Other Details: Incision is marked without additional drainage, dry, and intact no CVA tenderness Extremity normal to inspection General Extremity: edema bilateral (trace ) Weight / BMI Weight Weight: 173 lb Body Mass Index (BMI) 27.1 ABG / Lab / Microbiology Data 10/11/23 05:39 D/C Instructions Discharge Diet: No restrictions May resume sexual activity in: 4-6 weeks Weight Bearing Status: Full weight bearing Call your doctor if your incision/area has: Continuous Slow Oozing, Sudden Increased Bleeding, Increased Pain/ Swelling, Increased Redness and Foul Smelling Discharge Call your doctor if you observe: Fever of 101 or Higher and Using more than 1 pad per hour Suture Line Care: Avoid Pulling/Pushing and Avoid Pinching/Bending Cleanse incision/area with: Soap & Water and Keep Dressing Clean & Dry Please Follow Up With: Tonya Garland, When: Call [phone] to make an appointment for an incision check in 1-2 weeks. Meaningful Use Info Meaningful Use Meaningful Use Diagnoses (Choose all that apply): None applicable Ischemic Stroke Statin Dosing Therapy Reference: STATIN DOSE THERAPY REFERENCE: * Patients > 75 years receive moderate or high dose statin therapy. * Patients 75 years or YOUNGER should receive HIGH intensity statin dose unless contraindicated. You will be required to document reason for non-treatment if statin daily dose does not meet guidelines. HIGH DOSE STATIN THERAPY DAILY Atorvastatin > than or = to 40 mg Rosuvastatin > than or = to 20 mg Amlodipine + Atorvastatin > than or = to 2.5/40 mg Ezetimibe + Simvastatin 10/80 mg Simvastatin 80mg Discharge Plan Admission Admit Date/Time: 10/09/23 19:21 Primary Reason for Your Visit: section Attending Provider: Tonya Garland Primary Care Provider: Care PhysicianKarla Primary Discharge Orders/Prescriptions Prescriptions: New ibuprofen 800 mg tablet 800 mg PO Q8H PRN (Reason: pain) Qty: 30 0RF oxycodone-acetaminophen [Percocet] 5-325 mg tablet 1 tab PO Q4H PRN (Reason: pain) 7 Days Qty: 20 0RF Rx Instructions: 1-2 tabs q 4 hrs as needed for pain No Action PNV-DHA 27 mg iron-1 mg -300 mg capsule PO sertraline 25 mg tablet 50 mg PO DAILY Qty: 30 6RF Referrals / Follow Up: Care PhysicianKarla Primary [Primary Care Provider] - Disposition Disposition (needs filled in before D/C Order can be placed): Home, Self Care
[2023-10-13] MEDS: Senna/Docusate Sodium 1 Tablet PO (10:08)
[2023-10-13] MEDS: Sertraline 50 MG Tablet PO (10:08)
== END 2023-10-13 11:40 | disposition home or self-care (01) | DRG 787 ==
PROVIDERS: Advanced Practice Midwife; Admitting Provider Obstetrics & Gynecology; Referring Provider Obstetrics & Gynecology; Visit Provider Obstetrics & Gynecology
DX: O48.0 Post-term pregnancy (principal); O99.324 Drug use complicating childbirth; F32.A Depression, unspecified; F41.9 Anxiety disorder, unspecified; F12.90 Cannabis use, unspecified, uncomplicated; F17.290 Nicotine dependence, other tobacco product, uncomplicated; O77.0 Labor and delivery complicated by meconium in amniotic fluid; O76 Abnormality in fetal heart rate and rhythm complicating labor and delivery; O26.843 Uterine size-date discrepancy, third trimester; O69.81X0 Labor and delivery complicated by cord around neck, without compression, not applicable or unspecified; O99.344 Other mental disorders complicating childbirth; O99.334 Smoking (tobacco) complicating childbirth; Z79.899 Other long term (current) drug therapy; Z3A.41 41 weeks gestation of pregnancy; Z37.0 Single live birth
CPT/HCPCS: 59025; 59050; 80307; 85025; 85027; 86780; 86850; 86900; 86901; 99221; J7120; A4216; G0378; J2405